=== PATIENT | female | born 1970 | race Caucasian/White ===

== ENCOUNTER → 2020-12-03 15:10 | Outpatient (BNVA) | payer SELFPAY | PROVIDERS: Visit Provider Nurse Practitioner Family | DX: Z20.828 Contact with and (suspected) exposure to other viral communicable diseases (principal); J40 Bronchitis, not specified as acute or chronic | CPT/HCPCS: 87635 ==

== ENCOUNTER 2023-01-08 20:20 | Emergency (ER) | payer SELFPAY ==
[2023-01-08 20:22] VITALS: BP 123/82; PULSE 98; RESP 18; TEMP 36.7; O2SAT 97
--- NOTE | 2023-01-08 21:10 | ED.C_ITS ---
HPI - Psych General: Chief Complaint: Psychiatric Symptoms Stated Complaint: SI/MHE Time Seen by Provider: 01/08/23 21:10 History of Present Illness: 52-year-old female comes in today for complaints of depression. Patient states that she often does not want to get out of bed. Patient denies suicidal homicidal thoughts. 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 Patient reports that she is having a hard time dealing with these losses. Patient has had a history of depression and has been on several medications for depression. Patient had been on Effexor recently but reported no improvement of symptoms. Patient reports nicotine use and marijuana use. Patient denies alcohol, methamphetamines, or narcotic use. Associated symptoms: Reports depression; Deny homicidal ideation or suicidal ideation Review of Systems General: Reports: 10 or more systems reviewed and unremarkable except in HPI a nd below Const: Denies: fever(s) ENMT: Denies: throat pain Card: Denies: chest pain Resp: Denies: dyspnea GI: Denies: nausea or vomiting : Denies: flank pain Musc: Denies: back pain Skin/Breast: Denies: rash Neuro: Denies: headache(s) or numbness in extremities Psych: Reports: depression; Denies: suicidal ideation or homicidal ideation PFS ED PFSH: Social History Smoking and tobacco status: never smoked Alcohol intake: never Physical Exam Const: COMMON NORMALS: alert HENMT: COMMON NORMALS: normocephalic HEAD & SCALP: normocephalic Neck/C-Spine: COMMON NORMALS: full ROM Resp: COMMON NORMALS: normal respiratory effort and clear to auscultation bilaterally AUSCULTATION: clear to auscultation bilaterally Cardio: COMMON NORMALS: regular rate and regular rhythm RATE: regular rate RHYTHM: regular rhythm GI: COMMON NORMALS: Soft to palpation and non-tender PALPATION: Yes Soft to palpation Extremity: COMMON NORMALS: full ROM Neuro: SENSORIUM/ORIENTATION: Yes alert Skin: COMMON NORMALS: turgor normal GENERAL SKIN EXAM: turgor normal Course Vital Signs: Vital signs: Vital Signs Temperature 98.1 F 01/08/23 20:22 Pulse Rate 98 01/08/23 20:22 Respiratory Rate 18 01/08/23 20:22 Blood Pressure 123/82 01/08/23 20:22 Pulse Oximetry 97 01/08/23 20:22 Oxygen Delivery Me thod 01/08/23 20:22 MDM - Psych Medical Decision Making 52-year-old female comes in today for complaints of increased depression. Patient denies any homicidal suicidal thoughts. 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 On exam lungs are clear to auscultation. Vital signs are normal. Respirations are even lungs are clear to auscultation. Differential diagnosis includes but not limited to major depressive disorder, adjustment disorder, bipolar type II. Patient laboratory values were unremarkable. Patient was given 1/2 mg of lorazepam which helped calm her. Patient continued to deny any suicidal or homicidal thoughts. Discussed with patient medication she has been on before. Patient did not feel most of the medication she has been on has been effective and did not wish to start a new medication today. Patient was open to counseling, we will put a request into case management to assist with behavioral health counseling follow-up. Lab Data 01/08/23 21:25 01/08/23 21:25 Laboratory Results WBC 5.4 10^3/uL (4.0-10.0) 01/08/23: RBC 5.23 10^6/uL (4.1-5.3) 01/08/23 21:25 Hgb 15.7 g/dL (11.5-15.3) H 01/08/23 21: Hct 46.7 % (37.0-47.0) 01/08/23: MCV 89.3 fl (81-99) 01/08/23 21: MCH 30.0 pg (28.0-34.0) 01/08/23: MCHC 33.6 g/dL (30.0-36.0) 01/08/23: RDW 13.2 % (12.1-15.1) 01/08/23 21: Plt Count 220 10^3/cmm (130-400) 01/08/23 21: MPV 10.9 fL (7.4-10.4) H 01/08/23 21: Neut % (Auto) 60.8 % 01/08/23 21:25 Lymph % (Auto) 25.8 % 01/08/23 21:25 [place] % (Auto) 11.9 % 01/08/23 21: Eos % (Auto) 0.7 % 01/08/23 21:25 Baso % (Auto) 0.6 % 01/08/23 21:25 Neut # (Auto) 3.28 10^3/uL (1.8-7.7) 01/08/23 21: Lymph # (Auto) 1.4 10^3/uL (0.8-4.8) 01/08/23 21:25 [place] # (Auto) 0.6 10^3/uL (0.2-0.9) 01/08/23 21: Eos # (Auto) 0.0 10^3/uL (0.0-0.8) 01/08/23 21: Baso # (Auto) 0.0 10^3/uL (0.0-0.1) 01/08/23 21: Nucleated RBC % (auto) 0 % 01/08/23 21: Nucleated RBCs # 0.0 /100WBC 01/08/23 21:25 Sodium 141 mmol/L (136-145) 01/08/23 21:25 Potassium 3.2 mmol/L (3.5-5.1) L 01/08/23 21:25 Chloride 99 mmol/L (98-107) 01/08/23 21: Carbon Dioxide 26 mmol/L (22-29) 01/08/23 21:25 Anion Gap 19.2 (5-19) H 01/08/23 21:25 BUN 9 mg/dL (6-20) 01/08/23 21:25 Creatinine 0.9 mg/dL (0.5-0.9) 01/08/23 21:25 GFR Calculation 65.5 mL/min (90-130) L 01/08/23 21:25 Glucose 93 mg/dL (65-115) 01/08/23 21:25 Calculated Osmolality 290 mOsm/kg (285-295) 01/08/23 21:25 Calcium 9.4 mg/dL (8.5-10.5) 01/08/23 21:25 Total Bilirubin 0.7 mg/dL (0.15-1.2) 01/08/23 21:25 AST 24 U/L (0-32) 01/08/23 21:25 ALT 22 U/L (0-33) 01/08/23 21:25 Alkaline Phosphatase 154 U/L (35-105) H 01/08/23 21:25 Total Protein 7.8 g/dL (6.6-8.7) 01/08/23 21:25 Albumin 4.3 g/dL (3.5-5.2) 01/08/23 21:25 Globulin 3.5 g/dL (1.3-4.6) 01/08/23 21:25 TSH 3.39 uIU/mL (0.27-4.20) 01/08/23 21:25 Discharge Plan Discharge Patient Disposition: Home Clinical Impression: MDD (major depressive disorder) Qualifiers: Major depression recurrence: recurrent Active/Remission status: currently ac tive Major depression episode severity: moderate Qualified Code(s): F33.1 - Major depressive disorder, recurrent, moderate Condition: Stable Prescriptions: No Action albuterol sulfate [ProAir HFA] 90 mcg/actuation HFA aerosol inhaler 2 puff inhalation Q6H PRN (Reason: shortness of breath or wheezing) Qty: 8.5 0RF prednisone 20 mg tablet 40 mg PO DAILY 5 Days Qty: 10 0RF azithromycin 250 mg tablet See Rx Instructions PO .COMPLEX Qty: 6 0RF Rx Instructions: take 500 mg today (day 1), then 250 mg for 4 days (days 2-5) PO citalopram [Celexa] 20 mg tablet 20 mg PO DAILY Discharge Orders: Discharge ED (Routine); Ordered 01/08/23 Ordered By: Enoch Schneider Discharge Diet: Usual diet Discharge Activity: Increase activity as tolerated Patient Instructions: Depression (ED) Activity Restrictions/Additional Instructions: Home and rest. Drink plenty of water. Follow-up with primary care in the morning for recheck. Case management will contact you regarding follow-up appointment behavioral health counseling. Return to ER for worsening symptoms such as suicidal thoughts or ideation, or new concerns. Coding Level of Care Code ED B2B Sales Consultant for Jennifer Alvarez
[2023-01-08] MEDS: LORazepam 0.5 mg Tablet PO (21:27)
[2023-01-08 22:11] LABS: Basophils % 0.6 %; Eosinophils % 0.7 %; Hematocrit 46.7 % (37.0-47.0); Hemoglobin 15.7 g/dL (11.5-15.3); Lymphocytes # 1.4 10^3/uL (0.8-4.8); Lymphocytes % 25.8 %; Mean Corpuscular HGB Conc 33.6 g/dL (30.0-36.0); Mean Corpuscular Volume 89.3 fl (81-99); Mean Platelet Volume 10.9 fL (7.4-10.4); Monocytes # 0.6 10^3/uL (0.2-0.9); Monocytes % 11.9 %; Neutrophils # 3.28 10^3/uL (1.8-7.7); Neutrophils % 60.8 %; Nucleated Red Blood Cells % 0 %; Platelet Count 220 10^3/cmm (130-400); Red Blood Count 5.23 10^6/uL (4.1-5.3); Red Cell Distribution Width 13.2 % (12.1-15.1); White Blood Count 5.4 10^3/uL (4.0-10.0)
[2023-01-08 22:13] LABS: Alanine Aminotransferase 22 U/L (0-33); Albumin Level 4.3 g/dL (3.5-5.2); Alkaline Phosphatase 154 U/L (35-105); Anion Gap 19.2 (5-19); Aspartate Amino Transferase 24 U/L (0-32); Blood Urea Nitrogen 9 mg/dL (6-20); Calcium 9.4 mg/dL (8.5-10.5); Carbon Dioxide 26 mmol/L (22-29); Chloride 99 mmol/L (98-107); Globulin 3.5 g/dL (1.3-4.6); Glomerular Filtration Rate 65.5 mL/min (90-130); Glucose 93 mg/dL (65-115); Osmolality Calculated 290 mOsm/kg (285-295); Potassium 3.2 mmol/L (3.5-5.1); Sodium 141 mmol/L (136-145); Total Bilirubin 0.7 mg/dL (0.15-1.2); Total Protein 7.8 g/dL (6.6-8.7)
[2023-01-08 22:14] LABS: Thyroid Stimulating Hormone 3.39 uIU/mL (0.27-4.20)
[2023-01-08 22:25] VITALS: RESP 16; O2SAT 99
--- NOTE | 2023-01-09 08:56 | DCPLANNER ---
Addendum entered by Rashida Coleman 01/15/23 15:17: brokerage manager received the following message from Blanca Smith at [facility] regarding follow up appointment: Unable to be seen due to having a medical marijuana card with mental health diagnosis. She is currently working on getting the diagnosis changed. Addendum entered by Rashida Coleman 01/15/23 09:40: brokerage manager received the following message from Calli at [facility] regarding follow up appointment: Beata came in to our office and was not able to be seen for an assessment. She has a medical marijuana card for anxiety. She is able to speak to [facility] but not able to have any other services outside of that unless she revokes it or the diagnosis is changed Original Note: brokerage manager had message to refer patient to [facility]. brokerage manager sent patients information to the scheduling desk at [facility]. Patients information will be reviewed. Clinic will call patient with information on how to start services at the clinic. brokerage manager sent patients information to Blanca Smith, operating room coordinator at [facility]. Patients information will be reviewed, clinic will call patient an inform her on how to start services.
--- NOTE | 2023-01-09 14:02 | DCPLANNER ---
Addendum entered by Rashida Coleman 01/10/23 13:36: refractory manager called patient due to no primary care physician - no answer at this time Original Note: refractory manager called patient due to no primary care physician - no answer at this time
== END 2023-01-08 22:33 | disposition home or self-care (01) ==
PROVIDERS: Emergency Provider Nurse Practitioner Family
DX: F33.1 Major depressive disorder, recurrent, moderate (principal)
CPT/HCPCS: 36415; 80053; 84443; 85025; 99283

== ENCOUNTER 2023-01-17 13:33 | Emergency (ER) | payer SELFPAY ==
[2023-01-17 13:41] VITALS: BP 134/87; PULSE 81; RESP 17; TEMP 36.5; O2SAT 97; BMI 27.4
--- NOTE | 2023-01-17 13:58 | USCV_ITS ---
Beata Piedra Age: 52 Gender: F : 1970 Exam Date: 01/17/2023 14:13 Ordering Phys: Venancio Bal Technologist: Mark Bah [place] [facility] [place] Indication: lt leg pain and swelling PROCEDURES: Venous duplex imaging was performed in only the left lower extremity. The following venous structures were evaluated: common femoral vein, profunda vein, proximal portion of the greater saphenous vein, superficial femoral vein, and the popliteal vein. In addition, the posterior tibial and peroneal trunk were evaluated. FINDINGS: Normal 2-D Doppler and augmentation and compressibility throughout the lower extremity venous structures. Additional imaging through the proximal calf veins also reveals no thrombus. Limited evaluation of the greater saphenous vein is patent with no thrombus. CONCLUSIONS No evidence of left lower extremity DVT. Poli Zendejas MD (Electronically Signed) Final Date: 17 January 2023 17:36 S
--- NOTE | 2023-01-17 13:59 | W.ED.EXTPRO ---
HPI - Extremity Problem General: Chief complaint: Extremity Problem,Nontraumatic Stated complaint: left leg pain/burning Time Seen by Provider: 01/17/23 13:47 History of Present Illness: Patient is a 52-year-old female comes to the ED with left leg pain. Symptoms started approximately 4 days ago. Pain is located in her calf. She describes it as a burning type pain. While at rest pain is minimal. When she gets up to weight-bear or ambulate pain in left calf gets a lot worse. Patient has not had any injury/trauma to left leg and she denies any recent hospitalizations, surgeries or decreased mobility recently. denies any past DVTs or blood clots. Denies any chest pain, shortness of breath or hemoptysis. Associated symptoms: Deny chest pain, fever(s) or rash Review of Systems Const: Denies: fever(s), chills or fatigue Eyes: Denies: change in vision or eye discomfort ENMT: Denies: throat pain, odynophagia, nasal discharge or nasal congestion Card: Denies: chest pain, palpitations, edema, swelling of feet/ankles, dyspnea on exertion or orthopnea Resp: Denies: dyspnea, productive cough or non-productive cough GI: Denies: abdominal pain, nausea, vomiting, diarrhea, constipation or hematochezia : Denies: flank pain, dysuria or hematuria Musc: Reports: extremity pain (Left calf pain); Denies: neck pain, back pain or extremity swelling Skin/Breast: Denies: rash or new lesions Neuro: Denies: headache(s), numbness in extremities or weakness in extremities PFS ED PFSH: Medical History COPD (chronic obstructive pulmonary disease) No pertinent family history Social History Smoking and tobacco status: never smoked Alcohol intake: never Physical Exam Const: COMMON NORMALS: patient oriented x3 HENMT: COMMON NORMALS: normocephalic HEAD & SCALP: normocephalic MOUTH: Normal oral and palatal mucosa present THROAT: posterior oropharynx normal and uvula midline Neck/C-Spine: COMMON NORMALS: supple GENERAL: Yes normal visual inspection Resp: COMMON NORMALS: normal respiratory effort, No retractions, No use of accessory muscles and clear to auscultation bilaterally AUSCULTATION: clear to auscultation bilaterally Cardio: COMMON NORMALS: regular rate, regular rhythm, S1 normal heart sound present, S2 normal heart sound present, No gallops present (Cardio), No clicks present (Cardio), No murmurs present (Cardio) and Peripheral pulses 2+ throughout RATE: regular rate RHYTHM: regular rhythm HEART SOUNDS: S1 normal heart sound present and S2 normal heart sound present PERIPHERAL PULSES: Peripheral pulses 2+ throughout GI: COMMON NORMALS: Normal to inspection, nondistended, normoactive bowel sounds present, Soft to palpation, non-tender and no masses PALPATION: Yes Soft to palpation : COMMON NORMALS: Yes no CVA tenderness BLADDER/KIDNEY EXAM: Yes no CVA tenderness Back/Pelvis: COMMON NORMALS: no CVA tenderness Extremity: COMMON NORMALS: full ROM and no pedal edema NARRATIVE EXTREMITY EXAM: Left leg?varicose veins seen. Patient's left calf is tender upon palpation. No visible swelling or edema to left leg. GENERAL: Yes calf tenderness (Left) and No edema Neuro: COMMON NORMALS: patient oriented x3 GAIT: Yes Normal gait present Skin: GENERAL SKIN EXAM: dry skin Course Vital Signs: Vital signs: Vital Signs Temperature 97.7 F 01/17/23 13:41 Pulse Rate 81 01/17/23 13:41 Respiratory Rate 17 01/17/23 13:41 Blood Pressure 134/87 01/17/23 13:41 Pulse Oximetry 97 01/17/23 13:41 Oxygen Delivery Me thod 01/17/23 13:41 MDM - Extremity (Nontraumatic) Medical Decision Making Patient is a 52-year-old female comes to the ED with left leg pain. Symptoms started approximately 4 days ago. Pain is located in her calf. She describes it as a burning type pain. While at rest pain is minimal. When she gets up to weight-bear or ambulate pain in left calf gets a lot worse. Patient has not had any injury/trauma to left leg and she denies any recent hospitalizations, surgeries or decreased mobility recently. denies any past DVTs or blood clots. Denies any chest pain, shortness of breath or hemoptysis. Vitals are stable. Patient appears nontoxic in no acute distress or pain. Left leg shows some varicose veins. Left calf is tender upon palpation. No visible swelling or edema to left leg seen. Ultrasound venous duplex of left lower extremity showed no DVT or blood clots seen. Patient diagnosed with pain in the left lower leg which is likely muscular in nature. She stable for discharge home and told to follow-up with her PCP in the next week for reevaluation. Return to ED precautions given. Patient understood and agreed with plan. Imaging Data US Vascular: My impression: Ultrasound venous duplex of left lower extremity?prelim report showed no DVTs or blood clots seen Discharge Plan Discharge Patient Disposition: Home Clinical Impression: Pain in left lower leg Condition: Stable Prescriptions: No Action albuterol sulfate [ProAir HFA] 90 mcg/actuation HFA aerosol inhaler 2 puff inhalation Q6H PRN (Reason: shortness of breath or wheezing) Qty: 8.5 0RF methocarbamol [Robaxin] 500 mg Tablet 500 mg PO DAILY haloperidol 5 mg tablet 2.5 mg PO BID Discharge Orders: Discharge ED (Routine); Ordered 01/17/23 Ordered By: Venancio Bal Discharge Diet: Regular Discharge Activity: Increase activity as tolerated Activity Restrictions/Additional Instructions: Follow-up with medical provider as directed in the next 5 to 7 days for reevaluation. Rest, ice and elevate left leg to help with symptoms. Take [id number] ibuprofen or Tylenol to help with pain. Continue taking all home medications as previously prescribed. Return to the ER or your medical provider if condition worsens. Please read and understand discharge instructions. Thank you for choosing [facility] for your healthcare needs today. Please realize this is an emergency room and that we are providing you with a medical screening exam and this may not be complete and all inclusive of all the testing and or work up that you may need to determine your ailment or severity of your illness. It is very important that you follow up as instructed or that you return to the Emergency Department should you have concerns or if your condition changes or worsens in any way. Coding Level of Care Code ED Dock Manager for Jennifer Alvarez
[2023-01-17 14:35] VITALS: PULSE 80
--- NOTE | 2023-01-23 13:06 | DCPLANNER ---
Addendum entered by Rashida Coleman 01/29/23 15:13: legal project manager called patient due to no primary care physician - no answer at this time Original Note: legal project manager called patient due to no primary care physician - no answer at this time
== END 2023-01-17 14:38 | disposition home or self-care (01) ==
PROVIDERS: Emergency Provider Physician Assistant
DX: M79.662 Pain in left lower leg (principal); J44.9 Chronic obstructive pulmonary disease, unspecified
CPT/HCPCS: 93971; 99284

== ENCOUNTER 2023-01-18 16:24 | Inpatient (IN) | payer MEDICARE, SELFPAY ==
[2023-01-18 17:03] VITALS: BP 151/86; PULSE 91; RESP 19; TEMP 36.9; O2SAT 95; BMI 27.4
--- NOTE | 2023-01-18 17:11 | ED.C_ITS ---
HPI - Psych General: Chief Complaint: Psychiatric Symptoms Stated Complaint: stated on Bi poler high sent by jorge Time Seen by Provider: 01/18/23 17:10 History of Present Illness: Mrs. Piedra is a 52-year-old lady with history of bipolar presenting to the emergency department for manic episode. She reports onset of symptoms yesterday with inability to sleep, constant racing thoughts, inability to stand still. She thought initially this was a previous medication reaction however she presented to crisis stabilization center and was referred to the emergency department after evaluation for admission for suspected antonio. Patient otherwise denies changes in health from chronic baseline. No other specific changes in health, exacerbating, or alleviating factors identified. Onset (ago): day(s) History of same: Yes Relieving factors: none Exacerbating factors: none Associated psychiatric symptoms: racing thoughts and delusions Review of Systems General: Reports: 10 or more systems reviewed and unremarkable except in HPI and below PFSH ED PFSH: Medical History Chronic back pain COPD (chronic obstructive pulmonary disease) No pertinent family history Surgical History History of facial surgery reconstruction; as a child Family History Sister Cancer uterine Father Cancer prostate Other Chronic kidney disease (CKD) Dementia Diabetes Hyperlipidemia Hypertension Lung disease Psychiatric illness Stroke Denies family history of CAD (coronary artery disease) Clotting disorder Anesthesia complication Bleeding disorder Social History Smoking and tobacco status: current every day smoker cigarettes Packs smoked per day: 1 [ Other cigarette details: 1PPD, 35PY] Alcohol intake: former Year of sobriety/quit date alcohol: 2013 Former alcohol use details: heavy use prior Lives independently: Yes Marital status: Legally Number of children: 0 Current occupational status: employed 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 Special [place] needs: No Agree to transfusion: Yes Physical Exam Const: COMMON NORMALS: alert GENERAL APPEARANCE: cooperative and well developed HENMT: COMMON NORMALS: normocephalic and atraumatic HEAD & SCALP: normocephalic and atraumatic THROAT: posterior oropharynx normal Eye: COMMON NORMALS: conjunctivae normal CONJUNCTIVA: Yes conjunctivae normal SCLERA: sclerae normal Neck/C-Spine: COMMON NORMALS: supple GENERAL: Yes trachea midline Resp: COMMON NORMALS: clear to auscultation bilaterally EFFORT & INSPECTION: Yes able to speak in complete sentences AUSCULTATION: clear to auscultation bilaterally Cardio: COMMON NORMALS: regular rate and regular rhythm RATE: regular rate RHYTHM: regular rhythm GI: COMMON NORMALS: Soft to palpation PALPATION: Yes Soft to palpation and No Tenderness to palpation present (GI) Extremity: GENERAL: Yes normal exam except as noted and No edema Neuro: COMMON NORMALS: moves all extremities SENSORIUM/ORIENTATION: Yes alert and No Orientation impaired Psych: ACTIVITY/MOTOR BEHAVIOR: Yes hyperactivity SPEECH: Yes rapid and Yes Pressured speech present Course Vital Signs: Vital signs: Vital Signs Temperature 98.1 F 01/21/23 09:38 Pulse Rate 88 01/21/23 09:38 Respiratory Rate 18 01/21/23 14:00 Blood Pressure 136/86 01/21/23 09:38 Pulse Oximetry 95 01/21/23 09:38 Oxygen Delivery Me thod 01/21/23 06:00 MDM - Psych Medical Decision Making 52-year-old lady with psychiatric history presenting to the emergency department for suspected manic episode. Exam as above. Patient is nontoxic, she is cooperative. No significant hematologic or metabolic abnormalities to explain symptoms. Toxic ingestions are negative, UDS positive for THC. Given physical exam and clinical history provided there is no indication for imaging at this time. Based on ED evaluation at this point there is no obvious condition that would preclude the patient from inpatient management of psychiatric concerns/symptoms. The results of ED evaluation were discussed with the patient including plan for admission due to requirement for level of care not available if discharged to prevent significant worsening/deterioration. Patient agreeable with plan. Discussed with psychiatry service who was agreeable to admit patient. Medical Records I reviewed the patient's medical records. Lab Data I reviewed the patient's lab results. 01/18/23 17:30 01/18/23 17:30 Laboratory Results WBC 9.2 10^3/uL (4.0-10.0) 01/18/23 17:30 RBC 4.69 10^6/uL (4.1-5.3) 01/18/23 17:30 Hgb 14.0 g/dL (11.5-15.3) 01/18/23 17:30 Hct 42.4 % (37.0-47.0) 01/18/23 17: MCV 90.4 fl (81-99) 01/18/23 17:30 MCH 29.9 pg (28.0-34.0) 01/18/23 17: MCHC 33.0 g/dL (30.0-36.0) 01/18/23 17: RDW 13.4 % (12.1-15.1) 01/18/23 17:30 Plt Count 252 10^3/cmm (130-400) 01/18/23 17: MPV 10.1 fL (7.4-10.4) 01/18/23 17:30 Neut % (Auto) 60.9 % 01/18/23 17:30 Lymph % (Auto) 29.5 % 01/18/23 17:30 [place] % (Auto) 7.4 % 01/18/23 17: Eos % (Auto) 1.2 % 01/18/23 17: Baso % (Auto) 0.7 % 01/18/23 17: Neut # (Auto) 5.60 10^3/uL (1.8-7.7) 01/18/23 17: Lymph # (Auto) 2.7 10^3/uL (0.8-4.8) 01/18/23 17:30 [place] # (Auto) 0.7 10^3/uL (0.2-0.9) 01/18/23 17: Eos # (Auto) 0.1 10^3/uL (0.0-0.8) 01/18/23 17:30 Baso # (Auto) 0.1 10^3/uL (0.0-0.1) 01/18/23 17: Nucleated RBC % (auto) 0 % 01/18/23 17: Nucleated RBCs # 0.0 /100WBC 01/18/23 17:30 Sodium 140 mmol/L (136-145) 01/18/23 17:30 Potassium 3.6 mmol/L (3.5-5.1) 01/18/23 17: Chloride 103 mmol/L (98-107) 01/18/23 17:30 Carbon Dioxide 26 mmol/L (22-29) 01/18/23 17:30 Anion Gap 14.6 (5-19) 01/18/23 17:30 BUN 7 mg/dL (6-20) 01/18/23 17:30 Creatinine 0.7 mg/dL (0.5-0.9) 01/18/23 17:30 GFR Calculation 87.5 mL/min (90-130) L 01/18/23 17:30 Glucose 92 mg/dL (65-115) 01/18/23 17:30 Calculated Osmolality 288 mOsm/kg (285-295) 01/18/23 17:30 Calcium 8.8 mg/dL (8.5-10.5) 01/18/23 17:30 Total Bilirubin 0.4 mg/dL (0.15-1.2) 01/18/23 17:30 AST 17 U/L (0-32) 01/18/23 17:30 ALT 14 U/L (0-33) 01/18/23 17:30 Alkaline Phosphatase 142 U/L (35-105) H 01/18/23 17:30 Creatine Kinase 58 U/L (26-192) 01/18/23 17:30 Total Protein 7.3 g/dL (6.6-8.7) 01/18/23 17:30 Albumin 4.0 g/dL (3.5-5.2) 01/18/23 17:30 Globulin 3.3 g/dL (1.3-4.6) 01/18/23 17:30 TSH 2.63 uIU/mL (0.27-4.20) 01/18/23 17:30 HCG, Qual Negative (Negative) 01/18/23 17:19 Salicylates 2.7 mg/dL (3-10) L 01/18/23 17:30 Urine Opiates Screen Negative ng/mL (Negative) 01/18/23 17:19 Acetaminophen < 5.0 ug/mL (10-30) L 01/18/23 17:30 Ur Barbiturates Screen Negative ng/mL (Negative) 01/18/23 17:19 Ur Phencyclidine Scrn Negative ng/mL (Negative) 01/18/23 17:19 Ur Amphetamines Screen Negative ng/mL (Negative) 01/18/23 17:19 U Benzodiazepines Scrn Negative ng/mL (Negative) 01/18/23 17:19 Urine Cocaine Screen Negative ng/mL (Negative) 01/18/23 17:19 U Marijuana (THC) Screen Positive ng/mL (Negative) H 01/18/23 17:19 Ethyl Alcohol < 10 mg/dL (0-10) 01/18/23 17:30 Discharge Plan Discharge Patient Disposition: Admitted As Inpatient Admit Provider: Alen Torres Clinical Impression: Manic episode Condition: Stable Discharge Diet: Regular Discharge Activity: Resume usual activity Coding Level of Care Code ED Certified Personal Finance Counselor for Jennifer Alvarez
[2023-01-18 17:30] LABS: HCG Qualitative Urine. Negative (Negative)
[2023-01-18 17:44] LABS: Amphetamines Screen Urine Negative (Negative); Barbiturates Screen Urine Negative (Negative); Benzodiazepines Screen Urine Negative (Negative); Cocaine Screen Urine Negative (Negative); Opiate Screen Urine Negative (Negative); PCP Screen Urine Negative (Negative); THC Screen Urine Positive (Negative)
[2023-01-18 17:55] LABS: Basophils # 0.1 10^3/uL (0.0-0.1); Basophils % 0.7 %; Eosinophils # 0.1 10^3/uL (0.0-0.8); Eosinophils % 1.2 %; Hematocrit 42.4 % (37.0-47.0); Lymphocytes # 2.7 10^3/uL (0.8-4.8); Lymphocytes % 29.5 %; Mean Corpuscular Hemoglobin 29.9 pg (28.0-34.0); Mean Corpuscular Volume 90.4 fl (81-99); Mean Platelet Volume 10.1 fL (7.4-10.4); Monocytes # 0.7 10^3/uL (0.2-0.9); Monocytes % 7.4 %; Neutrophils % 60.9 %; Nucleated Red Blood Cells % 0 %; Platelet Count 252 10^3/cmm (130-400); Red Blood Count 4.69 10^6/uL (4.1-5.3); Red Cell Distribution Width 13.4 % (12.1-15.1); White Blood Count 9.2 10^3/uL (4.0-10.0)
[2023-01-18 18:22] VITALS: O2SAT 98
[2023-01-18 18:23] LABS: Alanine Aminotransferase 14 U/L (0-33); Alkaline Phosphatase 142 U/L (35-105); Anion Gap 14.6 (5-19); Aspartate Amino Transferase 17 U/L (0-32); Blood Urea Nitrogen 7 mg/dL (6-20); Calcium 8.8 mg/dL (8.5-10.5); Carbon Dioxide 26 mmol/L (22-29); Chloride 103 mmol/L (98-107); Creatine Phosphokinase 58 U/L (26-192); Globulin 3.3 g/dL (1.3-4.6); Glomerular Filtration Rate 87.5 mL/min (90-130); Glucose 92 mg/dL (65-115); Osmolality Calculated 288 mOsm/kg (285-295); Potassium 3.6 mmol/L (3.5-5.1); Salicylate 2.7 mg/dL (3-10); Sodium 140 mmol/L (136-145); Thyroid Stimulating Hormone 2.63 uIU/mL (0.27-4.20); Total Bilirubin 0.4 mg/dL (0.15-1.2); Total Protein 7.3 g/dL (6.6-8.7)
[2023-01-18 18:35] LABS: Acetaminophen < 5.0 ug/mL (10-30); Alcohol Level < 10 mg/dL (0-10)
[2023-01-18 19:37] VITALS: BP 124/95; PULSE 105; RESP 18; O2SAT 96
--- NOTE | 2023-01-18 19:40 | PC.NURSE ---
obtained vital signs
--- NOTE | 2023-01-18 20:00 | PC.NURSE ---
52yr. old female admitted to room #129-1. Arrived to floor via w/c from ED accompanied by ED staff and security. Patient is voluntary. Alert and Ox4. Mood is anxious/agitated. Patient reports being bipolar and is experiencing a manic episode that has lasted for several days this past week. Patient went to crisis stabilization center a few days ago for medication. Patient states she was given haldol and did take it for a few days but she felt like it made her manic symptoms worse so she quit taking it. Patient returned to the center today and was told by staff to come to ED for eval and treatment. Patient denies SI, HI or AVH. Rates anxiety at a 10/10 due to the antonio. Also reports depression at a 1/10. No c/o pain voiced. Patient lives with and does have a good support system which includes family and friends. Reports sleeping very little this past week. States she takes 20mg of THC gummies before bed everyday and does smoke marijuana daily with the amount being approximately 1/2 of a joint. Patient is cooperative. Skin assessment completed with no issues noted and no contraband found. Unit rules and expectations reviewed. Voiced understanding. Orientated to unit and snacks and fluids offered.
[2023-01-18 20:11] VITALS: BP 131/73; PULSE 90; RESP 15; TEMP 36.8; O2SAT 98
--- NOTE | 2023-01-18 21:15 | PC.NURSE ---
Patient is very manic and states she feels agitated and very anxious. States she would like medication to help relieve what she is feeling like. Call placed to Dr. Torres regarding patients behavior. N.O received to give haldol 5mg, Ativan 2mg and benadryl 50mg po to patient. Educated patient on medication before administration. Voiced understanding. Patient took medication. Encouraged patient to go to dayroom and watch TV to distract her from her thoughts. Patient went to dayroom.
[2023-01-18] MEDS: haloperidol 5 mg Tablet PO (21:24)
[2023-01-18] MEDS: diphenhydrAMINE 50 mg Capsule PO (21:24)
[2023-01-18] MEDS: LORazepam 2 mg Tablet PO (21:25)
[2023-01-18] MEDS: hyDROXYzine 25 mg Capsule 50 MG PO (22:25)
--- NOTE | 2023-01-18 22:25 | PC.NURSE ---
Patient asked to speak to staff. States she is still feeling very anxious and somewhat agitated. Voiced that her mind is racing with thoughts and she can not relax. PRN vistaril offered and taken. Education provided and questions answered. Voiced understanding. Suggested patient do an activity or return to room and try to lay down to relax. Patient stated she would attempt to do an activity.
[2023-01-18] MEDS: trazodone 50 mg Tablet PO (23:40)
--- NOTE | 2023-01-18 23:40 | PC.NURSE ---
Patient continues to voice that she can not go to sleep or relax. Reports her thoughts are racing no matter what she tries to do. Discussed relaxation techniques with patient. Patient visibly anxious. Trazodone offered to assist with sleep. Patient educated on medication. Encouraged patient to go to room and lay down for awhile. Patient agreed.
[2023-01-19] MEDS: OLANZapine 5 mg ODT PO (00:05)
--- NOTE | 2023-01-19 00:05 | PC.NURSE ---
Patient continues to pace halls and is frustrated that she can not go to sleep and states she feels very manic and agitated. Spent several minutes with patient discussing options to assist with relaxation. Patient continued to be visibly agitated. Zyprexa po given at this time. Educated patient on medication and she voiced understanding. Patient returned to room to attempt to rest.
--- NOTE | 2023-01-19 01:20 | PC.NURSE ---
Patient came to nurse's station stating her anxiety was a 10+. She reports trying to relax and go to sleep but her mind keeps racing. Ativan po given. Patient returned to room and laid down. Will continue to assess.
[2023-01-19] MEDS: LORazepam 2 mg Tablet PO (01:22)
--- NOTE | 2023-01-19 04:29 | PC.NURSE ---
Patient continues to be restless. Noted to be moving legs almost constantly while in bed. Patient states she is tired but her legs are restless and she can't rest. Encouraged patient to stay in bed and try and relax. Will continue to assess.
[2023-01-19 06:00] VITALS: RESP 18
--- NOTE | 2023-01-19 06:25 | PC.NURSE ---
Patient has slept off and on for the past few hours. Patient continues to be restless in bed. No signs of distress noted. Continues with 15 minute safety checks per staff.
--- NOTE | 2023-01-19 08:09 | PC.NURSE ---
Patient is resting quietly in bed with eyes closed. Scheduled haldol held due to sedation from previous prn's given on last shift. No signs of distress noted. Continues with 15 minute safety checks per staff.
--- NOTE | 2023-01-19 10:08 | PC.NURSE ---
limited shift assessment at this time, pt asleep in bed in room, shift production supervisor reported several PRN medications given for anxiety/insomnia. pt cont to sleep at this time, resp even et unlabored
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
[2023-01-19 14:00] VITALS: BP 113/73; PULSE 84; RESP 16; TEMP 36.6; O2SAT 91
[2023-01-19 19:57] VITALS: BP 104/68; PULSE 88; RESP 16; TEMP 37.1; O2SAT 95
[2023-01-19] MEDS: ARIPiprazole 10 mg Tablet 5 MG PO (22:03)
[2023-01-19] MEDS: haloperidol 5 mg Tablet 2.5 MG PO (22:04)
[2023-01-20 06:00] VITALS: PULSE 86; RESP 16; TEMP 36.7; O2SAT 94
[2023-01-20] MEDS: haloperidol 5 mg Tablet 2.5 MG PO ×2 (08:11→20:27)
[2023-01-20] MEDS: ARIPiprazole 10 mg Tablet PO (08:11)
[2023-01-20] MEDS: nicotine 4 mg lozenge MUCOUS MEM (10:03)
--- NOTE | 2023-01-20 11:14 | W.PM.NPUPNS ---
Subjective NPU Subjective: Patient presented today continuing to have impatience with the speed of the process. She continued to be clear about wanting to be discharged. We had a lengthy conversation about her goals. She reported that she had been on disability at 1 point. But then in 2013 she went back to work ending her disability and work until just recently. We discussed her getting connected with [facility] [place] and figuring out whether she just needed to be stabilized on her medication and return to work versus some possible short-term disability situation. But we identified the need to allow the situation to dictate our plan. She reports that she feels she is responding well to the Abilify. Mental Status Exam MSE Comments: This is a well nourished, well developed white female in hospital scrubs with limited grooming and limited eye contact. No abnormal movements except for psychomotor retardation. Cooperative with exam in mild distress. Speech was decreased rate and volume. Mood described as frustrated, affect is congruent but subdued. Thought process, organized. Thought content: patient denies suicidal or homicidal ideation, reports frequent paranoia but no delusions noted and reports auditory hallucinations but denies visual hallucinations. Attention and concentration are intact and memory appeared mostly reliable but none were formally tested. She is alert and oriented times three. Insight and judgment are limited, Impulse control is impaired. Vitals/I&O/Wt Last Vital Signs Temp 98.1 F 01/20/23 06:00 Pulse 86 01/20/23 06:00 Resp 16 01/20/23 06:00 BP 104/68 01/19/23 19:57 Pulse Ox 94 01/20/23 06:00 O2 Del Method 01/19/23 14:00 Weight last 48 hrs Weight 74.843 kg Weight 74.843 kg Data NPU 01/18/23 17:30 01/18/23 17:30 A&P Assessment and plan (1) Manic episode: (2) Cluster B personality disorder in adult: Plan This is a 52 year old white woman with a history of trauma, symptoms of depression, anxiety and ptsd, and genetic loading for mental health, addiction and lethality issues who presents reporting continuing manic symptoms including auditory hallucinations and paranoia who returns a week after a psychiatric evaluation reporting that she is worse and that the medications i.e. Haldol was not helpful. 1. Continue current medications. Initiated Abilify 5 mg x1 then increased to 10 mg p.o. every morning. 2. Encourage individual, group and milieu therapy 3. Continue q-15 minute check for safety 4. Recommend sober living treatment at the highest level of care to which the patient is willing to commit. Involuntary Hold Information 96 Hour Hold: 96 Hour Involuntary Admission: No Attestations NPU Medical Necessity Statement*: Inpatient hospitalization is medically necessary and the clinically appropriate intervention at this time. We will monitor medications and make changes as indicated. Likely length of stay is 2-4 days. However will discharge patient tomorrow if she continues to feel strongly about discharge. Coding Level of Care Code Acute Code for [facility] Fwd Diagnoses Manic episode F30.9 Cluster B personality disorder in adult F60.9
[2023-01-20 14:00] VITALS: BP 111/69; PULSE 93; RESP 18; TEMP 37; O2SAT 94
[2023-01-20] MEDS: acetaminophen 325 mg Tablet 650 MG PO (20:28)
--- NOTE | 2023-01-20 20:30 | PC.NURSE ---
PRN tylenol for moderate pain given as ordered for pt complaint of back pain.
[2023-01-20 20:39] VITALS: BP 123/63; PULSE 92; RESP 16; TEMP 36.9; O2SAT 93
[2023-01-21 06:00] VITALS: BP 136/86; PULSE 88; RESP 16; TEMP 36.7; O2SAT 95
[2023-01-21] MEDS: haloperidol 5 mg Tablet 2.5 MG PO (07:56)
[2023-01-21] MEDS: ARIPiprazole 10 mg Tablet PO (07:56)
[2023-01-21] MEDS: acetaminophen 325 mg Tablet 650 MG PO (08:31)
[2023-01-21] MEDS: ibuprofen 600 mg Tablet PO (09:05)
[2023-01-21 09:38] VITALS: BP 136/86; PULSE 88; RESP 16; TEMP 36.7; O2SAT 95
[2023-01-21 14:00] VITALS: RESP 18
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
== END 2023-01-21 16:32 | disposition home or self-care (01) | DRG 885 ==
LOC: ER 18:38 → NP 18:59
PROVIDERS: Admitting Provider Psychiatry & Neurology Psychiatry; Emergency Provider Emergency Medicine; Visit Provider Psychiatry & Neurology Psychiatry
DX: F30.9 Manic episode, unspecified (principal); F60.89 Other specific personality disorders; Z91.49 Other personal history of psychological trauma, not elsewhere classified; Z81.8 Family history of other mental and behavioral disorders; Z81.4 Family history of other substance abuse and dependence; Z62.811 Personal history of psychological abuse in childhood
CPT/HCPCS: 36415; 80053; 80306; 80307; 81025; 82550; 84443; 85025; 97150; 97165; 99238; 99285; Q0163

== ENCOUNTER 2023-09-07 03:34 | Emergency (ER) | payer SELFPAY ==
[2023-09-07 03:35] VITALS: BP 130/71; PULSE 78; RESP 22; TEMP 36.9; O2SAT 100
--- NOTE | 2023-09-07 03:39 | ECG_ITS ---
[facility] Test Date: 2023-09-07 Pat Name: Beata Piedra Department: Room: Gender: Female Treasury Specialist: : 1970 Requested By: Adonis Craft Order Number: [id number] Minesh MD: Dana Hernandez M.D. Measurements Intervals [place] Rate: 72 P: 85 [place]: 170 QRS: 83 QRSD: 93 T: 76 QT: 403 QTc: 441 Interpretive Statements SINUS RHYTHM Compared to ECG 12/10/2015 00:10:12 No significant changes Electronically Signed On 09-09-2023 18:45:23 FENCE REPAIRMAN by Dana Hernandez M.D. [id number]
--- NOTE | 2023-09-07 04:28 | XRR_ITS ---
PROCEDURE INFORMATION: Exam: XR Chest Exam date and time: 09/07/2023 4:30 AM Age: 52 years old Clinical indication: Shortness of breath; Patient HX: C/O SOB. History of copd. TECHNIQUE: Imaging protocol: Radiologic exam of the chest. Views: 1 view. COMPARISON: No relevant prior studies available. FINDINGS: Lungs: Minimal left lower lateral lung opacity. Lungs are otherwise clear. Pleural spaces: Unremarkable. No pleural effusion. No pneumothorax. Heart/Mediastinum: Unremarkable. No cardiomegaly. Advanced diffuse vascular calcification noted. Bones/joints: Unremarkable. XR/XR chest 1V portable [id number] IMPRESSION: Small area of left lateral lung base atelectasis, scarring, or airspace disease.
[2023-09-07 04:33] LABS: Basophils # 0.1 10^3/uL (0.0-0.1); Basophils % 0.9 %; Eosinophils # 0.2 10^3/uL (0.0-0.8); Eosinophils % 2.6 %; Hematocrit 40.3 % (36-47); Lymphocytes # 3.6 10^3/uL (0.8-4.8); Lymphocytes % 41.1 %; Mean Corpuscular HGB Conc 33.5 g/dL (30-55); Mean Corpuscular Hemoglobin 30.6 pg (27-33); Mean Corpuscular Volume 91.4 fl (85-98); Mean Platelet Volume 10.9 fL (7.4-10.4); Monocytes # 0.6 10^3/uL (0.2-0.9); Monocytes % 6.4 %; Neutrophils # 4.26 10^3/uL (1.8-7.7); Neutrophils % 48.8 %; Nucleated Red Blood Cells % 0 %; Platelet Count 210 10^3/cmm (157-399); Red Blood Count 4.41 10^6/uL (3.85-5.65); Red Cell Distribution Width 13.4 % (12.1-15.1); White Blood Count 8.75 10^3/uL (3.29-11.43)
[2023-09-07 04:44] LABS: Alanine Aminotransferase 15 U/L (0-33); Albumin Level 4.3 g/dL (3.5-5.2); Alkaline Phosphatase 125 U/L (35-105); Anion Gap 14.1 (5-19); Aspartate Amino Transferase 17 U/L (0-32); Blood Urea Nitrogen 10 mg/dL (6-20); Calcium 9.4 mg/dL (8.5-10.5); Carbon Dioxide 27 mmol/L (22-29); Chloride 100 mmol/L (98-107); Glucose 116 mg/dL (65-115); Osmolality Calculated 286 mOsm/kg (285-295); Potassium 3.1 mmol/L (3.5-5.1); Sodium 138 mmol/L (136-145); Total Bilirubin 0.3 mg/dL (0.15-1.2); Total Protein 7.3 g/dL (6.6-8.7)
[2023-09-07 05:06] LABS: Troponin(5th) Baseline 7 ng/L (0-10)
[2023-09-07 05:12] LABS: Magnesium 2.2 mg/dL (1.7-2.3); NT Pro B Type Natriuretic Pept 154 pg/mL (0-125); Thyroid Stimulating Hormone 5.53 uIU/mL (0.27-4.20)
--- NOTE | 2023-09-07 05:27 | ED_ITS ---
HPI - SOB/Dyspnea General: Chief Complaint: Shortness of Breath/Dyspnea Stated Complaint: RESP. DISTRESS Time Seen by Provider: 09/07/23 03:44 History of Present Illness: HPI Narrative: 52-year-old female presenting with shortness of breath and chest discomfort. She notes its been happening for the last couple of weeks on and off. It was worse this morning, while at work. She is experiencing chest pain, with palpitations, worse with lying flat. She has had a bit of a cough. No fever. No sputum production. Ambulance was called. She received a DuoNeb treatment and Solu-Medrol in route. She is feeling improved. She comes in on a simple mask. Associated symptoms: Reports chest pain, nausea and palpitations; Deny abdominal pain, dizziness, fever(s) or vomiting Review of Systems Const: Denies: fever(s), chills or body aches Eyes: Denies: change in vision Card: Reports: chest pain and palpitations Resp: Reports: dyspnea, productive cough and wheezing GI: Reports: nausea; Denies: abdominal pain, vomiting, diarrhea or hematochezia : Denies: difficulty voiding Skin/Breast: Denies: rash Neuro: Denies: headache(s), weakness in extremities, dizziness or confusion PFSH ED PFSH: Medical History Chronic back pain COPD (chronic obstructive pulmonary disease) No pertinent family history Surgical History History of facial surgery reconstruction; as a child Family History Sister Cancer uterine Father Cancer prostate Other Chronic kidney disease (CKD) Dementia Diabetes Hyperlipidemia Hypertension Lung disease Psychiatric illness Stroke Denies family history of CAD (coronary artery disease) Clotting disorder Anesthesia complication Bleeding disorder Social History Smoking and tobacco/nicotine status: current every day tobacco/nicotine user cigarettes Packs smoked per day: 1 [ Other cigarette details: 1PPD, 35PY] Alcohol intake: former Year of sobriety/quit date alcohol: 2012 Former alcohol use details: heavy use prior Substance/Drug Use: current Substance/Drug use frequency: daily Other substance/drug use details: Medical card Lives independently: Yes Marital status: Legally Number of children: 0 Current occupational status: employed 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 Special cuba needs: No Agree to transfusion: Yes Physical Exam Const: COMMON NORMALS: no acute distress GENERAL APPEARANCE: cooperative; not ill appearing and not frail appearing HENMT: COMMON NORMALS: normocephalic, atraumatic and Normal external nose present HEAD & SCALP: normocephalic and atraumatic FACE & SINUS: normal facial exam and face symmetric NOSE: Normal external nose present Eye: COMMON NORMALS: Equal, round and reactive pupils present and EOMs intact bilaterally PUPIL: Yes Equal, round and reactive pupils present Neck/C-Spine: GENERAL: Yes trachea midline Chest: CHEST: Yes Symmetrical chest wall rise Resp: COMMON NORMALS: normal respiratory effort, No retractions, No use of accessory muscles and clear to auscultation bilaterally AUSCULTATION: clear to auscultation bilaterally Cardio: COMMON NORMALS: regular rate and regular rhythm RATE: regular rate RHYTHM: regular rhythm GI: COMMON NORMALS: Normal to inspection, nondistended, normoactive bowel sounds present Extremity: COMMON NORMALS: no pedal edema Neuro: EFRAIN COMA SCALE: document GCS findings Efrain coma scale eye opening: Spontaneous Efrain coma scale verbal response: Orientated Efrain coma scale motor response: Obey commands [place] coma scale total score: 15 SENSORY EXAM: Yes extremities (intact) Psych: COMMON NORMALS: speech normal SPEECH: Yes normal speech Skin: COMMON NORMALS: no rashes or lesions noted GENERAL SKIN EXAM: no rashes or lesions noted Course Vital Signs: Vital signs: Vital Signs Temperature 98.4 F 09/07/23 03:35 Pulse Rate 83 09/07/23 05:56 Respiratory Rate 22 H 09/07/23 06:13 Blood Pressure 130/71 09/07/23 03:35 Pulse Oximetry 99 09/07/23 06:13 Oxygen Delivery Me thod Room Air 09/07/23 05:51 MDM - SOB/Dyspnea Medical Decision Making Oxygen was turned down on the simple mask to room air. She continues to maintain a saturation of 90% and above. CBC is normal. BMP shows a potassium of 3.1. Other laboratory is not remarkable. Troponin is 7. Chest x-ray is negative. EKG shows a sinus rhythm with a rate of 70 normal axis normal intervals and no ST changes. She will be placed on a steroid taper, albuterol. Outpatient follow-up. To return for worsening symptoms. Lab Data 09/07/23 03:46 09/07/23 03:46 Labs/Radiology: Radiology Impressions Chest X-Ray 09/07/23 04:28 IMPRESSION: Small area of left lateral lung base atelectasis, scarring, or airspace disease. Laboratory Results WBC 8.75 10^3/uL (3.29-11.43) 09/07/23 03:46 RBC 4.41 10^6/uL (3.85-5.65) 09/07/23 03:46 Hgb 13.50 g/dL (11.27-16.99) 09/07/23 03:46 Hct 40.3 % (36-47) 09/07/23 03:46 MCV 91.4 fl (85-98) 09/07/23 03:46 MCH 30.6 pg (27-33) 09/07/23 03:46 MCHC 33.5 g/dL (30-55) 09/07/23 03:46 RDW 13.4 % (12.1-15.1) 09/07/23 03:46 Plt Count 210 10^3/cmm (157-399) 09/07/23 03:46 MPV 10.9 fL (7.4-10.4) H 09/07/23 03:46 Neut % (Auto) 48.8 % 09/07/23 03:46 Lymph % (Auto) 41.1 % 09/07/23 03:46 [place] % (Auto) 6.4 % 09/07/23 03:46 Eos % (Auto) 2.6 % 09/07/23 03:46 Baso % (Auto) 0.9 % 09/07/23 03:46 Neut # (Auto) 4.26 10^3/uL (1.8-7.7) 09/07/23 03:46 Lymph # (Auto) 3.6 10^3/uL (0.8-4.8) 09/07/23 03:46 [place] # (Auto) 0.6 10^3/uL (0.2-0.9) 09/07/23 03:46 Eos # (Auto) 0.2 10^3/uL (0.0-0.8) 09/07/23 03:46 Baso # (Auto) 0.1 10^3/uL (0.0-0.1) 09/07/23 03:46 Nucleated RBC % (auto) 0 % 09/07/23 03:46 Nucleated RBCs # 0.0 /100WBC 09/07/23 03:46 Sodium 138 mmol/L (136-145) 09/07/23 03:46 Potassium 3.1 mmol/L (3.5-5.1) L 09/07/23 03:46 Chloride 100 mmol/L (98-107) 09/07/23 03:46 Carbon Dioxide 27 mmol/L (22-29) 09/07/23 03:46 Anion Gap 14.1 (5-19) 09/07/23 03:46 BUN 10 mg/dL (6-20) 09/07/23 03:46 Creatinine 1.1 mg/dL (0.5-0.9) H 09/07/23 03:46 GFR Calculation 52.0 mL/min (90-130) L 09/07/23 03:46 Glucose 116 mg/dL (65-115) H 09/07/23 03:46 Calculated Osmolality 286 mOsm/kg (285-295) 09/07/23 03:46 Calcium 9.4 mg/dL (8.5-10.5) 09/07/23 03:46 Magnesium 2.2 mg/dL (1.7-2.3) 09/07/23 03:46 Total Bilirubin 0.3 mg/dL (0.15-1.2) 09/07/23 03:46 AST 17 U/L (0-32) 09/07/23 03:46 ALT 15 U/L (0-33) 09/07/23 03:46 Alkaline Phosphatase 125 U/L (35-105) H 09/07/23 03:46 Troponin T Baseline 7 ng/L (0-10) 09/07/23 03:46 NT-Pro-B Natriuret Pep 154 pg/mL (0-125) H 09/07/23 03:46 Total Protein 7.3 g/dL (6.6-8.7) 09/07/23 03:46 Albumin 4.3 g/dL (3.5-5.2) 09/07/23 03:46 Globulin 3.0 g/dL (1.3-4.6) 09/07/23 03:46 TSH 5.53 uIU/mL (0.27-4.20) H 09/07/23 03:46 SARS-CoV-2 Ag (Rapid) negative (Negative) 09/07/23 05:00 All radiology interpretation(s) finalized by discharge Discharge Plan Discharge Patient Disposition: Home Clinical Impression: Acute exacerbation of chronic obstructive airways disease, Palpitations, Hypokalemia Condition: Stable Prescriptions: New Medrol (Maicol) 4 mg tablets,dose pack See Rx Instructions .ROUTE .COMPLEX Qty: 21 0RF Rx Instructions: orally per package directions Continued albuterol sulfate 90 mcg/actuation HFA aerosol inhaler 2 puff inhalation Q6H PRN (Reason: shortness of breath or wheezing) Qty: 8.5 0RF No Action mecobalamin (vitamin B12) 5,000 mcg tablet,chewable 5,000 mcg PO DAILY methocarbamol 500 mg tablet 500 mg PO DAILY Qty: 90 0RF aripiprazole 10 mg Tablet 30 mg PO DAILY 30 Days Qty: 30 1RF Discharge Orders: Discharge ED (Routine); Ordered 09/07/23 Ordered By: Adonis Michaels Referrals: Glenn Treviño MD [Primary Care Provider] - 1-3 days Patient Instructions: Heart Palpitations (ED), Hypokalemia (ED), COPD (Chronic Obstructive Pulmonary Disease) (ED), Opioid Safety, Pain Management Activity Restrictions/Additional Instructions: Return for worsening pain or palpitations, or shortness of breath despite treatment. Return for any new or concerning symptoms. Coding Level of Care Code ED Brush Loader And Handle Attacher for Jennifer Alvarez
[2023-09-07 05:35] LABS: SARS Covid-2 Antigen negative (Negative)
[2023-09-07] MEDS: potassium chloride ER 20 mEq Tablet 40 MEQ PO (05:41)
[2023-09-07 05:51] VITALS: PULSE 82; RESP 16; O2SAT 94
[2023-09-07] MEDS: ipratropium-albuterol 3 mL Neb INHALATION (05:51)
[2023-09-07 05:56] VITALS: PULSE 83
[2023-09-07 06:13] VITALS: RESP 22; O2SAT 99
== END 2023-09-07 06:14 | disposition home or self-care (01) ==
PROVIDERS: Emergency Provider Emergency Medicine; PCP Family Medicine
DX: J44.1 Chronic obstructive pulmonary disease with (acute) exacerbation (principal); R00.2 Palpitations; E87.6 Hypokalemia; Z11.52 Encounter for screening for COVID-19; F17.210 Nicotine dependence, cigarettes, uncomplicated
CPT/HCPCS: 71045; 80053; 83735; 83880; 84443; 84484; 85025; 87426; 93005; 94640; 99285

== ENCOUNTER 2024-07-18 17:57 | Emergency (ER) | payer OTHER, SELFPAY ==
[2024-07-18] VITALS (10 sets, daily range): BP systolic 106–136; BP diastolic 65–82; PULSE 74–98; RESP 14–24; TEMP 36.9; O2SAT 88–99
--- NOTE | 2024-07-18 18:12 | ECG_ITS ---
[facility] Test Date: 2024-07-18 Pat Name: Beata Piedra Department: Room: Gender: Female Special Educator: : 1970 Requested By: Masoud Cherry Order Number: [id number] Minesh MD: Usama Rodriguez M.D. Measurements Intervals [place] Rate: 75 P: 51 SC: 139 QRS: 66 QRSD: 87 T: 54 QT: 394 QTc: 442 Interpretive Statements SINUS RHYTHM ST DEVIATION AND MODERATE T-WAVE ABNORMALITY, CONSIDER ANTERIOR ISCHEMIA [-0.1+ mV T-WAVE IN V3/V4] Compared to ECG 09/07/2023 03:39:37 T-wave abnormality now present Possible ischemia now present Electronically Signed On 07-18-2024 19:54:15 CDT by Usama Rodriguez M.D. [email or web address].Vascular Closuremississippi baptist medical centerNOSTROMO ICTmercy health fairfield hospital.[employer]/store/OM/[id number]
--- NOTE | 2024-07-18 18:13 | XRR_ITS ---
PROCEDURE INFORMATION: Exam: XR Chest Exam date and time: 07/18/2024 6:27 PM Age: 53 years old Clinical indication: Shortness of breath; Patient HX: Cough; SOB; Headache TECHNIQUE: Imaging protocol: Radiologic exam of the chest. Views: 1 view. COMPARISON: CR XR chest 1V portable [id number] 09/07/2023 4:30 AM FINDINGS: Lungs: No pulmonary consolidation. Pleural spaces: No pneumothorax or pleural effusion. Heart/Mediastinum: Small size of the cardiac silhouette. Normal mediastinal contours. Bones/joints: Regional osseous structures are unremarkable. XR/XR chest 1V portable [id number] IMPRESSION: No radiographically apparent acute cardiopulmonary disease.
--- NOTE | 2024-07-18 18:15 | ED_ITS ---
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 States she has had some increased dyspnea along with wheezing she had headaches as well. States she feels like she has the flu. Denies any vomiting or diarrhea. Associated symptoms: Deny abdominal pain, chest pain, fever(s), nausea or vomiting Related Data Home Medications Medication Instructions Recorded Confirmed mecobalamin (vitamin B12) 5,000 5,000 mcg PO DAILY 01/24/23 01/31/23 mcg chewable tablet Previous Rx's Medication Instructions Recorded aripiprazole 10 mg tablet 30 mg (3 x 10 mg) PO DAILY 30 days 01/21/23 #30 tabs methocarbamol 500 mg tablet 500 mg PO DAILY #90 tabs 01/24/23 albuterol sulfate 90 mcg/actuation 2 puff inhalation Q6H PRN 09/07/23 aerosol inhaler shortness of breath or wheezing #8.5 grams methylprednisolone 4 mg tablets in See Rx Instructions PO .COMPLEX 09/07/23 a dose pack (Medrol (Maicol)) #21 ea prednisone 50 mg tablet 50 mg PO DAILY #5 tabs 07/18/24 Allergies Allergy/AdvReac Type Severity Reaction Status Date / Time No Known Allergies Allergy Verified 07/18/24 18:08 Review of Systems 2 Const: Denies: fever(s), chills, body aches or change in appetite ENMT: Denies: throat pain or dental pain Card: Denies: chest pain Resp: Reports: dyspnea and wheezing GI: Denies: abdominal pain, nausea, vomiting or diarrhea Musc: Denies: neck pain or back pain Skin/Breast: Denies: rash Neuro: Reports: headache(s) PFSH ED 2 PFSH: Medical History Chronic back pain No pertinent family history COPD (chronic obstructive pulmonary disease) Surgical History History of facial surgery reconstruction; as a child Family History Sister Cancer uterine Father Cancer prostate Other Chronic kidney disease (CKD) Dementia Diabetes Hyperlipidemia Hypertension Lung disease Psychiatric illness Stroke Denies family history of CAD (coronary artery disease) Clotting disorder Anesthesia complication Bleeding disorder Social History Smoking and tobacco/nicotine status: current every day tobacco/nicotine user cigarettes Packs smoked per day: 1 [ Other cigarette details: 1PPD, 35PY] Alcohol intake: former Year of sobriety/quit date alcohol: 2012 Former alcohol use details: heavy use prior Substance/Drug Use: current Substance/Drug use frequency: daily Other substance/drug use details: Medical card Lives independently: Yes Marital status: Legally Number of children: 0 Current occupational status: employed 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 Special 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[place] needs: No Agree to transfusion: Yes Physical Exam 2 Const: COMMON NORMALS: patient oriented x3 HENMT: COMMON NORMALS: normocephalic and atraumatic HEAD & SCALP: n ormocephalic and atraumatic Neck/C-Spine: COMMON NORMALS: full ROM and supple Chest: COMMONS NORMALS: normal inspection of the chest Resp: COMMON NORMALS: normal respiratory effort, No retractions and No use of accessory muscles EFFORT & INSPECTION: Yes Actively coughing AUSCULTATION: wheezes Cardio: COMMON NORMALS: regular rate, regular rhythm and No murmurs present (Cardio) RATE: regular rate RHYTHM: regular rhythm Extremity: COMMON NORMALS: normal to inspection and full ROM Neuro: COMMON NORMALS: patient oriented x3, moves all extremities and no focal motor deficits Psych: COMMON NORMALS: mental status grossly normal, Normal thought process present and cooperative THOUGHT PROCESS: Normal thought process present Skin: COMMON NORMALS: no rashes or lesions noted and no wounds GENERAL SKIN EXAM: no rashes or lesions noted Course 2 Vital Signs: Vital signs: Vital Signs Temperature 98.4 F 07/18/24 18:03 Pulse Rate 98 07/18/24 20:29 Respiratory Rate 24 H 07/18/24 20:29 Blood Pressure 109/67 07/18/24 20:29 Pulse Oximetry 94 07/18/24 20:29 Oxygen Delivery Me thod Room Air 07/18/24 19:56 MDM - SOB/Dyspnea Medical Decision Making Patient presents here with likely COPD exacerbation she is much improved her breathing feels no signs of pneumonia patient on steroids patient stable for discharge follow-up PCP return if worsening Medical Records I reviewed the patient's medical records. Lab Data I reviewed the patient's lab results. 07/18/24 18:22 07/18/24 18:22 Labs/Radiology: Radiology Impressions Chest X-Ray 07/18/24 18:13 IMPRESSION: No radiographically apparent acute cardiopulmonary disease. Laboratory Results WBC 7.93 10^3/uL (3.29-11.43) 07/18/24 18:22 RBC 5.01 10^6/uL (3.85-5.65) 07/18/24 18:22 Hgb 14.80 g/dL (11.27-16.99) 07/18/24 18:22 Hct 44.5 % (36-47) 07/18/24 18:22 MCV 88.8 fl (85-98) 07/18/24 18:22 MCH 29.5 pg (27-33) 07/18/24 18: MCHC 33.3 g/dL (30-55) 07/18/24 18:22 RDW 14.0 % (12.1-15.1) 07/18/24 18: Plt Count 223 10^3/cmm (157-399) 07/18/24 18:22 MPV 10.6 fL (7.4-10.4) H 07/18/24 18:22 Neut % (Auto) 77.1 % 07/18/24 18:22 Lymph % (Auto) 14.4 % 07/18/24 18:22 [place] % (Auto) 7.1 % 07/18/24 18:22 Eos % (Auto) 0.6 % 07/18/24 18:22 Baso % (Auto) 0.5 % 07/18/24 18: Neut # (Auto) 6.12 10^3/uL (1.8-7.7) 07/18/24 18:22 Lymph # (Auto) 1.1 10^3/uL (0.8-4.8) 07/18/24 18:22 [place] # (Auto) 0.6 10^3/uL (0.2-0.9) 07/18/24 18:22 Eos # (Auto) 0.1 10^3/uL (0.0-0.8) 07/18/24 18:22 Baso # (Auto) 0.0 10^3/uL (0.0-0.1) 07/18/24 18:22 Nucleated RBC % (auto) 0 % 07/18/24 18:22 Nucleated RBCs # 0.0 /100WBC 07/18/24 18:22 Sodium 140 mmol/L (136-145) 07/18/24 18:22 Potassium 3.4 mmol/L (3.5-5.1) L 07/18/24 18:22 Chloride 103 mmol/L (98-107) 07/18/24 18:22 Carbon Dioxide 24 mmol/L (22-29) 07/18/24 18:22 Anion Gap 16.4 (5-19) 07/18/24 18:22 BUN 7 mg/dL (6-20) 07/18/24 18:22 Creatinine 0.8 mg/dL (0.5-0.9) 07/18/24 18:22 GFR Calculation 74.7 mL/min (90-130) L 07/18/24 18:22 Glucose 104 mg/dL (65-115) 07/18/24 18:22 Calculated Osmolality 288 mOsm/kg (285-295) 07/18/24 18:22 Calcium 8.9 mg/dL (8.5-10.5) 07/18/24 18:22 Total Bilirubin 0.7 mg/dL (0.15-1.2) 07/18/24 18:22 AST 20 U/L (0-32) 07/18/24 18:22 ALT 13 U/L (0-33) 07/18/24 18:22 Alkaline Phosphatase 179 U/L (35-105) H 07/18/24 18:22 Total Protein 7.4 g/dL (6.6-8.7) 07/18/24 18:22 Albumin 4.1 g/dL (3.5-5.2) 07/18/24 18:22 Globulin 3.3 g/dL (1.3-4.6) 07/18/24 18:22 Coronavirus (PCR) Negative (Negative) 07/18/24 18:14 Influenza A (PCR) Negative (Negative) 07/18/24 18:14 Influenza Type B (PCR) Negative (Negative) 07/18/24 18:14 RSV (PCR) Negative (Negative) 07/18/24 18:14 All radiology interpretation(s) finalized by discharge EKG Data EKG 1: I personally reviewed and interpreted this EKG as follows: EKG Interpretation Date: 07/18/24 EKG interpretation time: 18:18 Interpretation: nsr hr 75 no stemi qrs 87 qtc 423 Discharge Plan Discharge Patient Disposition: Home Clinical Impression: Acute exacerbation of chronic obstructive airways disease Condition: Stable Prescriptions: New prednisone 50 mg tablet 50 mg PO DAILY Qty: 5 0RF No Action mecobalamin (vitamin B12) 5,000 mcg tablet,chewable 5,000 mcg PO DAILY methocarbamol 500 mg tablet 500 mg PO DAILY Qty: 90 0RF aripiprazole 10 mg Tablet 30 mg PO DAILY 30 Days Qty: 30 1RF Medrol (Maicol) 4 mg tablets,dose pack See Rx Instructions .ROUTE .COMPLEX Qty: 21 0RF Rx Instructions: orally per package directions albuterol sulfate 90 mcg/actuation HFA aerosol inhaler 2 puff inhalation Q6H PRN (Reason: shortness of breath or wheezing) Qty: 8.5 0RF Discharge Orders: Discharge ED (Routine); Ordered 07/18/24 Ordered By: Masoud Cherry Referrals: Marni Lee DO [Primary Care Provider] - 4-7 days Discharge Diet: Advance as tolerated Discharge Activity: Resume usual activity Patient Instructions: COPD (Chronic Obstructive Pulmonary Disease) (ED) Coding Level of Care Code ED Cad Operator for Jennifer Alvarez
[2024-07-18 18:28] LABS: Basophils % 0.5 %; Eosinophils # 0.1 10^3/uL (0.0-0.8); Eosinophils % 0.6 %; Hematocrit 44.5 % (36-47); Lymphocytes # 1.1 10^3/uL (0.8-4.8); Lymphocytes % 14.4 %; Mean Corpuscular HGB Conc 33.3 g/dL (30-55); Mean Corpuscular Hemoglobin 29.5 pg (27-33); Mean Corpuscular Volume 88.8 fl (85-98); Mean Platelet Volume 10.6 fL (7.4-10.4); Monocytes # 0.6 10^3/uL (0.2-0.9); Monocytes % 7.1 %; Neutrophils # 6.12 10^3/uL (1.8-7.7); Neutrophils % 77.1 %; Nucleated Red Blood Cells % 0 %; Platelet Count 223 10^3/cmm (157-399); Red Blood Count 5.01 10^6/uL (3.85-5.65); White Blood Count 7.93 10^3/uL (3.29-11.43)
[2024-07-18] MEDS: methylPREDNISolone sod succ 125 mg/2 mL INJ IV (18:31)
[2024-07-18] MEDS: ketorolac 30 mg/mL INJ 15 MG IVP (18:31)
[2024-07-18] MEDS: albuterol 2.5 mg/3 mL Neb INHALATION ×2 (18:38→19:55)
[2024-07-18] MEDS: ipratropium-albuterol 3 mL Neb INHALATION (18:38)
[2024-07-18 18:52] LABS: Alanine Aminotransferase 13 U/L (0-33); Albumin Level 4.1 g/dL (3.5-5.2); Alkaline Phosphatase 179 U/L (35-105); Aspartate Amino Transferase 20 U/L (0-32); Blood Urea Nitrogen 7 mg/dL (6-20); Calcium 8.9 mg/dL (8.5-10.5); Carbon Dioxide 24 mmol/L (22-29); Chloride 103 mmol/L (98-107); Creatinine Clr Calc Pharmacy 88.3043; Globulin 3.3 g/dL (1.3-4.6); Glomerular Filtration Rate 74.7 mL/min (90-130); Glucose 104 mg/dL (65-115); Osmolality Calculated 288 mOsm/kg (285-295); Sodium 140 mmol/L (136-145); Total Bilirubin 0.7 mg/dL (0.15-1.2); Total Protein 7.4 g/dL (6.6-8.7)
[2024-07-18 19:00] LABS: Covid PCR NEGATIVE (Negative); Influenza A NEGATIVE (Negative); Influenza B NEGATIVE (Negative); Respiratory Syncytial Virus Ce NEGATIVE (Negative)
[2024-07-18 19:01] LABS: Anion Gap 16.4 (5-19); Potassium 3.4 mmol/L (3.5-5.1)
== END 2024-07-18 20:15 | disposition home or self-care (01) ==
PROVIDERS: Emergency Provider Emergency Medicine; PCP Family Medicine
DX: J44.1 Chronic obstructive pulmonary disease with (acute) exacerbation (principal); F17.210 Nicotine dependence, cigarettes, uncomplicated
CPT/HCPCS: 0241U; 71045; 80053; 85025; 93005; 94640; 96374; 96375; 99285; J1885; J2919; J7613

== ENCOUNTER 2024-07-20 09:32 | Emergency (ER) | payer OTHER, SELFPAY ==
[2024-07-20] VITALS (10 sets, daily range): BP systolic 119–148; BP diastolic 62–85; PULSE 58–79; RESP 10–22; TEMP 36.6; O2SAT 89–99
--- NOTE | 2024-07-20 09:35 | ED_ITS ---
HPI - SOB/Dyspnea 2 General: Chief Complaint: Shortness of Breath/Dyspnea Stated Complaint: SOB Time Seen by Provider: 07/20/24 09:33 Source: patient Mode of arrival: EMS Limitations: no limitations History of Present Illness: HPI Narrative: Patient is a 53-year-old female presents to ED today with a complaint of dyspnea. She states she has a history of COPD. She is a chronic everyday smoker. Patient was seen here in our emergency department approximately 2 days ago for similar symptoms. She states she was placed on prednisone at discharge but does not feel like this medication has helped. Patient arrives via EMS. She was reportedly given a DuoNeb treatment and route and feels somewhat better. She appears anxious upon arrival and tearful stating she feels like she cannot get enough air. She is satting 90 to 99% on room air. MD elicited complaint: shortness of breath Pertinent past history: COPD Onset (ago): day(s) Timing: constant Severity: moderate Exacerbating factors: nothing Relieving factors: nothing Known history of: COPD Associated symptoms: Reports chest congestion; Deny abdominal pain, chest pain, dizziness, extremity pain, fever(s), hemoptysis, lightheadedness, nausea, palpitations, syncope or vomiting Treatment prior to arrival: bronchodilator Related Data Home Medications Medication Instructions Recorded Confirmed atorvastatin 10 mg tablet 10 mg PO DAILY 07/20/24 07/20/24 buspirone 15 mg tablet 15 mg PO DAILY 07/20/24 07/20/24 escitalopram oxalate 10 mg tablet 10 mg PO DAILY 07/20/24 07/20/24 pregabalin 100 mg capsule 100 mg PO TID 07/20/24 07/20/24 Previous Rx's Medication Instructions Recorded albuterol sulfate 90 mcg/actuation 2 puff inhalation Q6H PRN 09/07/23 aerosol inhaler shortness of breath or wheezing #8.5 grams prednisone 50 mg tablet 50 mg PO DAILY #5 tabs 07/18/24 albuterol sulfate 2.5 mg/0.5 mL 2.5 mg (0.5 mL) inhalation Q4H PRN 07/20/24 solution for nebulization shortness of breath or wheezing #30 ea levofloxacin 500 mg tablet 500 mg PO DAILY 7 days #7 tabs 07/20/24 Allergies Allergy/AdvReac Type Severity Reaction Status Date / Time No Known Allergies Allergy Verified 07/18/24 18:08 Review of Systems 2 Const: Denies: fever(s), chills, body aches, fatigue or malaise ENMT: Denies: throat pain, odynophagia, nasal discharge, nasal congestion or sinus pain Card: Reports: dyspnea on exertion; Denies: chest pain, palpitations, irregular heart rhythm, edema, swelling of feet/ankles, lightheadedness, syncope, pre-syncope, leg pain with exertion or acrocyanosis Resp: Reports: dyspnea, productive cough and chest congestion; Denies: wheezing or hemoptysis GI: Denies: abdominal pain, nausea, vomiting or diarrhea : Denies: flank pain, difficulty voiding, dysuria, urinary frequency, urinary urgency or urinary hesitancy Musc: Denies: neck pain, back pain, extremity pain, extremity swelling or joint pain Skin/Breast: Denies: rash Neuro: Denies: headache(s), numbness in extremities, weakness in extremities, sensory changes or dizziness PFSH ED 2 PFSH: Medical History Chronic back pain No pertinent family history COPD (chronic obstructive pulmonary disease) Surgical History History of facial surgery reconstruction; as a child Family History Sister Cancer uterine Father Cancer prostate Other Chronic kidney disease (CKD) Dementia Diabetes Hyperlipidemia Hypertension Lung disease Psychiatric illness Stroke Denies family history of CAD (coronary artery disease) Clotting disorder Anesthesia complication Bleeding disorder Social History Smoking and tobacco/nicotine status: current every day tobacco/nicotine user cigarettes Packs smoked per day: 1 [ Other cigarette details: 1PPD, 35PY] Alcohol intake: former Year of sobriety/quit date alcohol: 2013 Former alcohol use details: heavy use prior Substance/Drug Use: current Substance/Drug use frequency: daily Other substance/drug use details: Medical card Lives independently: Yes Marital status: Legally Number of children: 0 Current occupational status: employed 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[place] needs: No Agree to transfusion: Yes Physical Exam 2 Const: COMMON NORMALS: average body habitus, patient oriented x3, no limitations, alert and well nourished GENERAL APPEARANCE: cooperative, anxious and other (tearful) ORIENTATION/CONSCIOUSNESS: Yes awake, Yes oriented to person, Yes oriented to place and Yes oriented to time Eye: GENERAL EYE: appearance normal, both eyes and all related structures Neck/C-Spine: COMMON NORMALS: full ROM and no lymphadenopathy GENERAL: Yes normal visual inspection Chest: COMMONS NORMALS: normal inspection of the chest and normal palpation of entire chest wall Resp: COMMON NORMALS: normal respiratory effort EFFORT & INSPECTION: Yes labored, No grunting, No stridor, No retractions and No uses accessory muscles AUSCULTATION: no wheezes and other (course breath sounds L>R) Cardio: COMMON NORMALS: regular rate and regular rhythm RATE: regular rate RHYTHM: regular rhythm GI: COMMON NORMALS: Normal to inspection, nondistended, normoactive bowel sounds present, Soft to palpation and non-tender PALPATION: Yes Soft to palpation : COMMON NORMALS: Yes no CVA tenderness BLADDER/KIDNEY EXAM: Yes no CVA tenderness Back/Pelvis: COMMON NORMALS: no CVA tenderness and thoracic and lumbar spine normal to inspection Extremity: COMMON NORMALS: normal to inspection, capillary refill normal, no clubbing, cyanosis or edema, no calf tenderness and no pedal edema GENERAL: Y es normal exam except as noted Neuro: COMMON NORMALS: patient oriented x3, moves all extremities, no focal motor deficits and no sensory deficits noted SENSORIUM/ORIENTATION: Yes alert, Yes oriented to person, Yes oriented to place and Yes oriented to time Skin: COMMON NORMALS: no rashes or lesions noted GENERAL SKIN EXAM: no rashes or lesions noted Course 2 Vital Signs: Vital signs: Vital Signs Temperature 97.8 F 07/20/24 09:35 Pulse Rate 74 07/20/24 09:53 Respiratory Rate 18 07/20/24 09:53 Blood Pressure 128/83 07/20/24 09:35 Pulse Oximetry 97 07/20/24 09:53 Oxygen Delivery Me thod Room Air 07/20/24 09:53 MDM - SOB/Dyspnea Medical Decision Making Patient is a 53-year-old female here with complaints of shortness of breath and feeling like she cannot get enough air. Patient has maintained normal oxygen saturations without oxygen during her stay. She was very anxious and benefited from a small amount of IV Ativan. Her vital signs are stable. She clinically does not appear fluid overloaded. Her CXR showing no acute findings. Blood work overall is fairly unremarkable. Baseline troponin of 41. No recent for comparison. She does have a negative delta. She has not had any chest pain during her stay. BNP slightly elevated at 667. She has no history of CHF. Clinically she has a COPD exacerbation. She does have follow-up with her primary care provider on Saturday. Will have case management set her up with a pulmonology appointment to optimize her COPD regimen. Respiratory panel has been collected and pending. She feels so much better after IV steroids and stacked DuoNeb treatments here and now resting comfortably. She is requesting a nebulizer for home use which be provided. Will place her on abx. She has several days of steroids left from her last visit. Differential Diagnosis Likely acute exacerbation of chronic obstructive airways disease, congestive heart failure, community acquired pneumonia and pulmonary embolism Medical Records I reviewed the patient's medical records. Lab Data I reviewed the patient's lab results. 07/20/24 09:53 07/20/24 09:53 Labs/Radiology: Radiology Impressions Chest X-Ray 07/20/24 09:40 IMPRESSION: No acute findings. Laboratory Results WBC 12.79 10^3/uL (3.29-11.43) H 07/20/24 09:53 RBC 5.13 10^6/uL (3.85-5.65) 07/20/24 09:53 Hgb 15.20 g/dL (11.27-16.99) 07/20/24 09:53 Hct 45.6 % (36-47) 07/20/24 09:53 MCV 88.9 fl (85-98) 07/20/24 09:53 MCH 29.6 pg (27-33) 07/20/24 09:53 MCHC 33.3 g/dL (30-55) 07/20/24 09:53 RDW 14.3 % (12.1-15.1) 07/20/24 09:53 Plt Count 271 10^3/cmm (157-399) 07/20/24 09:53 MPV 11.1 fL (7.4-10.4) H 07/20/24 09:53 Neut % (Auto) 69.2 % 07/20/24 09:53 Lymph % (Auto) 23.6 % 07/20/24 09:53 [place] % (Auto) 6.7 % 07/20/24 09:53 Eos % (Auto) 0.0 % 07/20/24 09:53 Baso % (Auto) 0.2 % 07/20/24 09:53 Neut # (Auto) 8.85 10^3/uL (1.8-7.7) H 07/20/24 09:53 Lymph # (Auto) 3.0 10^3/uL (0.8-4.8) 07/20/24 09:53 [place] # (Auto) 0.9 10^3/uL (0.2-0.9) 07/20/24 09:53 Eos # (Auto) 0.0 10^3/uL (0.0-0.8) 07/20/24 09:53 Baso # (Auto) 0.0 10^3/uL (0.0-0.1) 07/20/24 09:53 Nucleated RBC % (auto) 0 % 07/20/24 09:53 Nucleated RBCs # 0.0 /100WBC 07/20/24 09:53 Sodium 142 mmol/L (136-145) 07/20/24 09:53 Potassium 3.6 mmol/L (3.5-5.1) 07/20/24 09:53 Chloride 102 mmol/L (98-107) 07/20/24 09:53 Carbon Dioxide 25 mmol/L (22-29) 07/20/24 09:53 Anion Gap 18.6 (5-19) 07/20/24 09:53 BUN 21 mg/dL (6-20) H 07/20/24 09:53 Creatinine 0.9 mg/dL (0.5-0.9) 07/20/24 09:53 GFR Calculation 65.2 mL/min (90-130) L 07/20/24 09:53 Glucose 84 mg/dL (65-115) 07/20/24 09:53 Calculated Osmolality 296 mOsm/kg (285-295) H 07/20/24 09:53 Calcium 9.3 mg/dL (8.5-10.5) 07/20/24 09:53 Total Bilirubin 0.7 mg/dL (0.15-1.2) 07/20/24 09:53 AST 73 U/L (0-32) H 07/20/24 09:53 ALT 25 U/L (0-33) 07/20/24 09:53 Alkaline Phosphatase 163 U/L (35-105) H 07/20/24 09:53 Troponin T Baseline 41 ng/L (0-10) H 07/20/24 09:53 Troponin T 120 Minute 32.72 ng/L (0-10) H 07/20/24 12:04 Delta Troponin T -8.28 ABS# (0-10) L 07/20/24 12:04 NT-Pro-B Natriuret Pep 667 pg/mL (0-125) H 07/20/24 09:53 Total Protein 7.1 g/dL (6.6-8.7) 07/20/24 09:53 Albumin 4.3 g/dL (3.5-5.2) 07/20/24 09:53 Globulin 2.8 g/dL (1.3-4.6) 07/20/24 09:53 All radiology interpretation(s) finalized by discharge Discharge Plan Discharge Patient Disposition: Home Clinical Impression: Acute exacerbation of chronic obstructive airways disease Condition: Stable Prescriptions: New albuterol sulfate 2.5 mg/0.5 mL solution for nebulization 2.5 mg inhalation Q4H PRN (Reason: shortness of breath or wheezing) Qty: 30 0RF levofloxacin 500 mg tablet 500 mg PO DAILY 7 Days Qty: 7 0RF No Action albuterol sulfate 90 mcg/actuation HFA aerosol inhaler 2 puff inhalation Q6H PRN (Reason: shortness of breath or wheezing) Qty: 8.5 0RF prednisone 50 mg tablet 50 mg PO DAILY Qty: 5 0RF atorvastatin 10 mg tablet 10 mg PO DAILY buspirone 15 mg tablet 15 mg PO DAILY escitalopram oxalate 10 mg tablet 10 mg PO DAILY pregabalin 100 mg capsule 100 mg PO TID Discharge Orders: Discharge ED (Routine); Ordered 07/20/24 Ordered By: Oksana Crawford Other Ambulatory Orders: DME: Nebulizer with Neb Kit (Order) Location: None Selected Ordered By: Oksana Crawford Referrals: Marni Lee DO [Primary Care Provider] - Patient Instructions: COPD (Chronic Obstructive Pulmonary Disease) (DC), Chronic Bronchitis (DC) Activity Restrictions/Additional Instructions: As we discussed, please follow-up with your primary care provider on Saturday as scheduled. You need to return to the emergency department for worsening shortness of breath or difficulty breathing, chest pain, lightheadedness/dizziness/passing out, significant weight gain, coughing up blood, generally feeling worse or unwell, or any other concerns you may have. Coding Level of Care Code ED Market Research Manager for Jennifer Alvarez
--- NOTE | 2024-07-20 09:38 | ECG_ITS ---
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 Measurements Intervals [place] Rate: 69 P: 30 [place]: 126 QRS: 67 QRSD: 88 T: 48 QT: 431 QTc: 464 Interpretive Statements SINUS RHYTHM Compared to ECG 07/18/2024 18:18:53 T-wave abnormality no longer present Possible ischemia no longer present Electronically Signed On 07-20-2024 23:27:07 CDT by Usama Rodriguez M.D. [id number]
--- NOTE | 2024-07-20 09:40 | XRR_ITS ---
PROCEDURE INFORMATION: Exam: XR Chest Exam date and time: 07/20/2024 9:50 AM Age: 53 years old Clinical indication: Shortness of breath; Additional info: SOB TECHNIQUE: Imaging protocol: Radiologic exam of the chest. Views: 1 view. COMPARISON: CR (CHEST, ) 07/18/2024 6:27 PM FINDINGS: Lungs: Unremarkable. No consolidation. Pleural spaces: Unremarkable. No pleural effusion. No pneumothorax. Heart/Mediastinum: Borderline cardiomegaly accentuated by the AP positioning. Bones/joints: Unremarkable. XR/XR chest 1V portable [id number] IMPRESSION: No acute findings.
--- NOTE | 2024-07-20 09:46 | PC.NURSE ---
THIS NURSE WAS ATTEMPTING TO OBTAIN ORAL TEMPERATURE ON PT. PT STATED QUIT STABBING ME WITH THAT. THIS NURSE EDUCATED PT ON THE NEED TO OBTAIN AN ORAL TEMPERATURE FOR ACCURATE RESULTS. PT OPENED MOUTH AGAIN AND THEN STATED TO THIS NURSE, STOP THAT. I'M DONE. THIS NURSE EDUCATED PT YET AGAIN ABOUT THE NEED TO GET A TEMPERATURE AND THE ORAL TEMPERATURE BEING THE MOST ACCURATE. PT BEGAN TO RAISE VOICE AT THIS NURSE AND STATED WELL GET SOMEONE ELSE. I CAN'T BREATHE. I HAVE RIGHTS AND I FEEL LIKE MY RIGHTS ARE BEING VIOLATED. THIS NURSE APOLOGIZED AND EDUCATED PT THAT SHE WAS NOT TRYING TO HURT HER, BUT TRYING TO PROVIDE THE BEST CARE POSSIBLE. PT STATED GET ME SOMEONE ELSE. I AM SCARED OUT OF MY MIND AND YOU ARE NOT HELPING ME. AXIALLARY TEMPERATURE OBTAINED. WHILE THIS NURSE WAS COMPLETING TRIAGE, PT WAS ASKED ABOUT PHARMACY. PT RAISED VOICE AGAIN AT THIS NURSE AND STATED JEMAL. LAST TIME I WAS HERE YOU GUYS SENT IT TO [facility]. GET IT RIGHT THIS TIME. THIS NURSE APOLOGIZED TO PT AND TOLD HER THAT WE WOULD SEND IT WHERE SHE WANTED.
[2024-07-20] MEDS: methylPREDNISolone sod succ 125 mg/2 mL INJ IVP (09:54)
[2024-07-20] MEDS: ipratropium-albuterol 3 mL Neb INHALATION ×3 (09:57)
[2024-07-20 10:02] LABS: Basophils % 0.2 %; Hematocrit 45.6 % (36-47); Lymphocytes % 23.6 %; Mean Corpuscular HGB Conc 33.3 g/dL (30-55); Mean Corpuscular Hemoglobin 29.6 pg (27-33); Mean Corpuscular Volume 88.9 fl (85-98); Mean Platelet Volume 11.1 fL (7.4-10.4); Monocytes # 0.9 10^3/uL (0.2-0.9); Monocytes % 6.7 %; Neutrophils # 8.85 10^3/uL (1.8-7.7); Neutrophils % 69.2 %; Nucleated Red Blood Cells % 0 %; Platelet Count 271 10^3/cmm (157-399); Red Blood Count 5.13 10^6/uL (3.85-5.65); Red Cell Distribution Width 14.3 % (12.1-15.1); White Blood Count 12.79 10^3/uL (3.29-11.43)
[2024-07-20 10:23] LABS: Troponin(5th) Baseline 41 ng/L (0-10)
[2024-07-20 10:32] LABS: Alanine Aminotransferase 25 U/L (0-33); Albumin Level 4.3 g/dL (3.5-5.2); Alkaline Phosphatase 163 U/L (35-105); Anion Gap 18.6 (5-19); Aspartate Amino Transferase 73 U/L (0-32); Blood Urea Nitrogen 21 mg/dL (6-20); Calcium 9.3 mg/dL (8.5-10.5); Carbon Dioxide 25 mmol/L (22-29); Chloride 102 mmol/L (98-107); Globulin 2.8 g/dL (1.3-4.6); Glomerular Filtration Rate 65.2 mL/min (90-130); Glucose 84 mg/dL (65-115); NT Pro B Type Natriuretic Pept 667 pg/mL (0-125); Osmolality Calculated 296 mOsm/kg (285-295); Potassium 3.6 mmol/L (3.5-5.1); Sodium 142 mmol/L (136-145); Total Bilirubin 0.7 mg/dL (0.15-1.2); Total Protein 7.1 g/dL (6.6-8.7)
--- NOTE | 2024-07-20 11:36 | ECG_ITS ---
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 Measurements Intervals [place] Rate: 67 P: 58 NM: 146 QRS: 72 QRSD: 94 T: 54 QT: 410 QTc: 433 Interpretive Statements SINUS RHYTHM WITH SINUS ARRHYTHMIA MODERATE T-WAVE ABNORMALITY, CONSIDER ANTERIOR ISCHEMIA [-0.1+ mV T-WAVE IN V3/V4] Compared to ECG 07/20/2024 09:38:42 T-wave abnormality now present Possible ischemia now present Electronically Signed On 07-20-2024 23:36:45 CDT by Usama Rodriguez M.D. [id number]
[2024-07-20] MEDS: LORazepam 2 mg/mL INJ 1 mL 0.5 MG IVP (12:04)
[2024-07-20 12:33] LABS: Troponin 5 2HR 32.72 ng/L (0-10)
[2024-07-20 12:37] LABS: Troponin 5 2HR Delta -8.28 ABS# (0-10)
--- NOTE | 2024-07-20 12:54 | ECG_ITS ---
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 Measurements Intervals [place] Rate: 61 P: 65 [place]: 139 QRS: 67 QRSD: 91 T: 48 QT: 433 QTc: 436 Interpretive Statements SINUS RHYTHM NONSPECIFIC T-WAVE ABNORMALITY Compared to ECG 07/20/2024 11:36:33 Sinus arrhythmia no longer present Possible ischemia no longer present T-wave abnormality still present Electronically Signed On 07-20-2024 23:35:22 CDT by Usama Rodriguez M.D. [id number]
[2024-07-20 13:44] LABS: Adenovirus Not Detected (NOT DETECT); Chlamydia Pneumoniae Not Detected (NOT DETECT); Coronavirus 229E,HKU1,NL63,OC4 Not Detected (NOT DETECT); Human Metapneumovirus Not Detected (NOT DETECT); Human Rhinovirus/Enterovirus Detected (NOT DETECT); Influenza A Not Detected (NOT DETECT); Influenza A H1 Not Detected (NOT DETECT); Influenza A H1-2009 Not Detected (NOT DETECT); Influenza A H3 Not Detected (NOT DETECT); Influenza B Not Detected (NOT DETECT); Mycoplasma Pneumoniae Not Detected (NOT DETECT); Parainfluenza Virus Type 1 Not Detected (NOT DETECT); Parainfluenza Virus Type 2 Not Detected (NOT DETECT); Parainfluenza Virus Type 3 Not Detected (NOT DETECT); Parainfluenza Virus Type 4 Not Detected (NOT DETECT); Respiratory Syncytial Virus A Not Detected (NOT DETECT); Respiratory Syncytial Virus B Not Detected (NOT DETECT); SARS-COV-2 Not Detected (NOT DETECT)
--- NOTE | 2024-07-21 07:56 | DCPLANNER ---
faxed referral packet to pulmonology/Esthela
== END 2024-07-20 13:35 | disposition home or self-care (01) ==
PROVIDERS: Emergency Provider Physician Assistant; PCP Family Medicine
DX: J44.1 Chronic obstructive pulmonary disease with (acute) exacerbation (principal); F17.210 Nicotine dependence, cigarettes, uncomplicated
CPT/HCPCS: 71045; 80053; 83880; 84484; 85025; 87486; 87581; 87633; 93005; 94640; 96374; 96375; 99285; J2060; J2919

== ENCOUNTER 2024-08-21 10:18 | Emergency (ER) | payer OTHER, SELFPAY ==
[2024-08-21 10:21] VITALS: BMI 29.6
[2024-08-21 10:28] VITALS: BP 147/81; PULSE 70; RESP 20; TEMP 36.7; O2SAT 99
--- NOTE | 2024-08-21 10:30 | W.ED.ANXIETY ---
HPI - Anxiety General: Chief Complaint: Anxiety Stated Complaint: ANXIETY Time Seen by Provider: 08/21/24 10:22 Source: patient and EMS Mode of arrival: EMS Limitations: no limitations History of Present Illness: 53-year-old female history of anxiety states that she has not taken her meds last 2 days because she has been having nausea and states she had a GI bug states that the vomiting is improved but she had an anxiety attack today EMS states that she was tachypneic hyperventilating they did give her Versed she feels improved she denies any chest pain. Associated symptoms: Reports nausea and vomiting; Deny chest pain, chills, fever(s) or headache(s) Related Data Home Medications Medication Instructions Recorded Confirmed atorvastatin 10 mg tablet 10 mg PO DAILY 07/20/24 08/21/24 buspirone 15 mg tablet 15 mg PO DAILY 07/20/24 08/21/24 pregabalin 100 mg capsule 100 mg PO TID 07/20/24 08/21/24 escitalopram oxalate 20 mg tablet 20 mg PO DAILY 08/21/24 08/21/24 Previous Rx's Medication Instructions Recorded albuterol sulfate 90 mcg/actuation 2 puff inhalation Q6H PRN 09/07/23 aerosol inhaler shortness of breath or wheezing #8.5 grams albuterol sulfate 2.5 mg/0.5 mL 2.5 mg (0.5 mL) inhalation Q4H PRN 07/20/24 solution for nebulization shortness of breath or wheezing #30 ea ondansetron 4 mg disintegrating 4 mg PO Q6H PRN nausea and 08/21/24 tablet vomiting #14 tabs Allergies Allergy/AdvReac Type Severity Reaction Status Date / Time No Known Allergies Allergy Verified 07/18/24 18:08 Review of Systems Const: Denies: fever(s), chills, body aches or change in appetite ENMT: Denies: throat pain or dental pain Card: Denies: chest pain Resp: Denies: dyspnea GI: Reports: nausea, vomiting and diarrhea; Denies: abdominal pain : Denies: dysuria Musc: Denies: neck pain or back pain Skin/Breast: Denies: rash Neuro: Denies: headache(s) Psych: Reports: anxiety PFSH ED PFSH: Medical History Chronic back pain No pertinent family history COPD (chronic obstructive pulmonary disease) Surgical History History of facial surgery reconstruction; as a child Family History Sister Cancer uterine Father Cancer prostate Other Chronic kidney disease (CKD) Dementia Diabetes Hyperlipidemia Hypertension Lung disease Psychiatric illness Stroke Denies family history of CAD (coronary artery disease) Clotting disorder Anesthesia complication Bleeding disorder Social History Smoking and tobacco/nicotine status: current every day tobacco/nicotine user cigarettes Packs smoked per day: 1 [ Other cigarette details: 1PPD, 35PY] Alcohol intake: former Year of sobriety/quit date alcohol: 2012 Former alcohol use details: heavy use prior Substance/Drug Use: current Substance/Drug use frequency: daily Other substance/drug use details: Medical card Lives independently: Yes Marital status: Legally Number of children: 0 Current occupational status: employed 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 Special cub[place] needs: No Agree to transfusion: Yes Physical Exam Const: COMMON NORMALS: no acute distress, patient oriented x3 and healthy appearing HENMT: COMMON NORMALS: normocephalic and atraumatic HEAD & SCALP: normocephalic and atraumatic Eye: COMMON NORMALS: conjunctivae normal CONJUNCTIVA: Yes conjunctivae normal Neck/C-Spine: COMMON NORMALS: full ROM and supple Chest: COMMONS NORMALS: normal inspection of the chest Resp: COMMON NORMALS: normal respiratory effort, No retractions, No use of accessory muscles and clear to auscultation bilaterally AUSCULTATION: clear to auscultation bilaterally Cardio: COMMON NORMALS: regular rate, regular rhythm and No murmurs present (Cardio) RATE: regular rate RHYTHM: regular rhythm Extremity: COMMON NORMALS: normal to inspection and full ROM Neuro: COMMON NORMALS: patient oriented x3, moves all extremities and no focal motor deficits Psych: COMMON NORMALS: mental status grossly normal, Normal thought process present and cooperative THOUGHT PROCESS: Normal thought process present Skin: COMMON NORMALS: no rashes or lesions noted and no wounds GENERAL SKIN EXAM: no rashes or lesions noted Course Vital Signs: Vital signs: Vital Signs Temperature 98.1 F 08/21/24 10:28 Pulse Rate 70 08/21/24 10:28 Respiratory Rate 20 H 08/21/24 10:28 Blood Pressure 147/81 08/21/24 10:28 Pulse Oximetry 99 08/21/24 10:28 Oxygen Delivery Me thod Room Air 08/21/24 10:28 MDM - Anxiety Medical Decision Making Patient presents here with nausea on last 2 days also anxiety likely due to missing her meds she feels improved here after Versed with EMS and nausea meds we will prescribe her nausea meds for home abdominal exam is benign no signs of obstruction or acute abdominal emergency she is to follow-up with PCP and return if worsening Medical Records I reviewed the patient's medical records. Lab Data I reviewed the patient's lab results. 08/21/24 10:40 08/21/24 10:40 Laboratory Results WBC 7.08 10^3/uL (3.29-11.43) 08/21/24 10:40 RBC 5.00 10^6/uL (3.85-5.65) 08/21/24 10:40 Hgb 14.70 g/dL (11.27-16.99) 08/21/24 10:40 Hct 44.4 % (36-47) 08/21/24 10:40 MCV 88.8 fl (85-98) 08/21/24 10:40 MCH 29.4 pg (27-33) 08/21/24 10:40 MCHC 33.1 g/dL (30-55) 08/21/24 10:40 RDW 14.3 % (12.1-15.1) 08/21/24 10:40 Plt Count 225 10^3/cmm (157-399) 08/21/24 10:40 MPV 10.1 fL (7.4-10.4) 08/21/24 10:40 Neut % (Auto) 71.0 % 08/21/24 10:40 Lymph % (Auto) 21.8 % 08/21/24 10:40 [place] % (Auto) 6.1 % 08/21/24 10:40 Eos % (Auto) 0.4 % 08/21/24 10:40 Baso % (Auto) 0.4 % 08/21/24 10:40 Neut # (Auto) 5.03 10^3/uL (1.8-7.7) 08/21/24 10:40 Lymph # (Auto) 1.5 10^3/uL (0.8-4.8) 08/21/24 10:40 [place] # (Auto) 0.4 10^3/uL (0.2-0.9) 08/21/24 10:40 Eos # (Auto) 0.0 10^3/uL (0.0-0.8) 08/21/24 10:40 Baso # (Auto) 0.0 10^3/uL (0.0-0.1) 08/21/24 10:40 Nucleated RBC % (auto) 0 % 08/21/24 10:40 Nucleated RBCs # 0.0 /100WBC 08/21/24 10:40 Sodium 138 mmol/L (136-145) 08/21/24 10:40 Potassium 3.7 mmol/L (3.5-5.1) 08/21/24 10:40 Chloride 100 mmol/L (98-107) 08/21/24 10:40 Carbon Dioxide 24 mmol/L (22-29) 08/21/24 10:40 Anion Gap 17.7 (5-19) 08/21/24 10:40 BUN 14 mg/dL (6-20) 08/21/24 10:40 Creatinine 0.9 mg/dL (0.5-0.9) 08/21/24 10:40 GFR Calculation 65.2 mL/min (90-130) L 08/21/24 10:40 Glucose 106 mg/dL (65-115) 08/21/24 10:40 Calculated Osmolality 287 mOsm/kg (285-295) 08/21/24 10:40 Calcium 9.1 mg/dL (8.5-10.5) 08/21/24 10:40 Total Bilirubin 0.8 mg/dL (0.15-1.2) 08/21/24 10:40 AST 28 U/L (0-32) 08/21/24 10:40 ALT 16 U/L (0-33) 08/21/24 10:40 Alkaline Phosphatase 161 U/L (35-105) H 08/21/24 10:40 Total Protein 6.9 g/dL (6.6-8.7) 08/21/24 10:40 Albumin 4.1 g/dL (3.5-5.2) 08/21/24 10:40 Globulin 2.8 g/dL (1.3-4.6) 08/21/24 10:40 Lipase 47 U/L (13-60) 08/21/24 10:40 No radiology studies performed this visit Discharge Plan Discharge Patient Disposition: Home Clinical Impression: Vomiting, Acute anxiety Condition: Stable Prescriptions: New ondansetron 4 mg tablet,disintegrating 4 mg PO Q6H PRN (Reason: nausea and vomiting) Qty: 14 0RF No Action albuterol sulfate 90 mcg/actuation HFA aerosol inhaler 2 puff inhalation Q6H PRN (Reason: shortness of breath or wheezing) Qty: 8.5 0RF atorvastatin 10 mg tablet 10 mg PO DAILY buspirone 15 mg tablet 15 mg PO DAILY pregabalin 100 mg capsule 100 mg PO TID albuterol sulfate 2.5 mg/0.5 mL solution for nebulization 2.5 mg inhalation Q4H PRN (Reason: shortness of breath or wheezing) Qty: 30 0RF escitalopram oxalate 20 mg tablet 20 mg PO DAILY Discharge Orders: Discharge ED (Routine); Ordered 08/21/24 Ordered By: Masoud Cherry Referrals: Marni Lee DO [Primary Care Provider] - 4-7 days Discharge Diet: Advance as tolerated Discharge Activity: Resume usual activity Patient Instructions: Acute Nausea and Vomiting (ED) Coding Level of Care Code ED Field Logistics Coordinator for Jennifer Alvarez
[2024-08-21 10:46] LABS: Basophils % 0.4 %; Eosinophils % 0.4 %; Hematocrit 44.4 % (36-47); Lymphocytes # 1.5 10^3/uL (0.8-4.8); Lymphocytes % 21.8 %; Mean Corpuscular HGB Conc 33.1 g/dL (30-55); Mean Corpuscular Hemoglobin 29.4 pg (27-33); Mean Corpuscular Volume 88.8 fl (85-98); Mean Platelet Volume 10.1 fL (7.4-10.4); Monocytes # 0.4 10^3/uL (0.2-0.9); Monocytes % 6.1 %; Neutrophils # 5.03 10^3/uL (1.8-7.7); Nucleated Red Blood Cells % 0 %; Platelet Count 225 10^3/cmm (157-399); Red Cell Distribution Width 14.3 % (12.1-15.1); White Blood Count 7.08 10^3/uL (3.29-11.43)
[2024-08-21] MEDS: ondansetron 2 mg/ML SDV 2 mL 4 MG IVP (10:47)
[2024-08-21 11:00] LABS: Alanine Aminotransferase 16 U/L (0-33); Albumin Level 4.1 g/dL (3.5-5.2); Alkaline Phosphatase 161 U/L (35-105); Anion Gap 17.7 (5-19); Aspartate Amino Transferase 28 U/L (0-32); Blood Urea Nitrogen 14 mg/dL (6-20); Calcium 9.1 mg/dL (8.5-10.5); Carbon Dioxide 24 mmol/L (22-29); Chloride 100 mmol/L (98-107); Creatinine Clr Calc Pharmacy 75.0128; Globulin 2.8 g/dL (1.3-4.6); Glomerular Filtration Rate 65.2 mL/min (90-130); Glucose 106 mg/dL (65-115); Lipase 47 U/L (13-60); Osmolality Calculated 287 mOsm/kg (285-295); Potassium 3.7 mmol/L (3.5-5.1); Sodium 138 mmol/L (136-145); Total Bilirubin 0.8 mg/dL (0.15-1.2); Total Protein 6.9 g/dL (6.6-8.7)
[2024-08-21] MEDS: LORazepam 1 mg Tablet PO (11:10)
[2024-08-21 11:58] VITALS: BP 138/85; PULSE 74; RESP 14; O2SAT 96
== END 2024-08-21 11:38 | disposition home or self-care (01) ==
PROVIDERS: Emergency Provider Emergency Medicine; PCP Family Medicine
DX: F41.9 Anxiety disorder, unspecified (principal); R11.2 Nausea with vomiting, unspecified; Z91.148 Patient's other noncompliance with medication regimen for other reason
CPT/HCPCS: 80053; 83690; 85025; 96374; 99284; J2405

== ENCOUNTER 2025-02-01 18:31 | Inpatient (IN) | payer OTHER, SELFPAY ==
[2025-02-01 18:33] VITALS: BP 116/81; PULSE 81; RESP 17; TEMP 36.7; O2SAT 96; BMI 28.3
--- NOTE | 2025-02-01 18:46 | ED.C_ITS ---
HPI - Psych 2 General: Chief Complaint: Psychiatric Symptoms Stated Complaint: 96 Time Seen by Provider: 02/01/25 18:33 Source: patient and police Limitations: no limitations History of Present Illness: 54-year-old female with a history of bip olar disorder she is placed under 96- hour hold per police multiple people states she has been acting erratic and making threats to others and placed her on a 96-hour court ordered hold. Patient here is denying all the above. Related Data Home Medications ?Medication ?Instructions ?Recorded ?Confirmed atorvastatin 10 mg tablet 10 mg PO DAILY 07/20/2407/29 buspirone 15 mg tablet 15 mg PO DAILY 07/20/2407/29 pregabalin 100 mg capsule 100 mg PO TID 07/20/2408/21 escitalopram oxalate 20 mg tablet 20 mg PO DAILY 08/2108/21/24 Previous Rx's ?Medication ?Instructions ?Recorded albuterol sulfate 90 mcg/actuation 2 puff inhalation Q 6H PRN 09/07/23 aerosol inhaler shortness of breath or wheez ing #8.5 grams albuterol sulfate 2.5 mg/0.5 mL 2.5 mg (0.5 mL) inhala tion Q4H PRN 07/20/24 solution for nebulization shortness of breath or wheez ing #30 ea ondansetron 4 mg disintegrating 4 mg PO Q6H PRN nausea and 08/21/24 tablet vomiting #14 tabs Allergies Allergy/AdvReac Type Severity Reaction Status Date / Time No Known Allergies Allergy Verified 07/18/24 18:08 Review of Systems 2 Const: Denies: fever(s), chills, body aches or change in appetite ENMT: Denies: throat pain or dental pain Card: Denies: chest pain Resp: Denies: dyspnea GI: Denies: abdominal pain, nausea, vomiting or diarrhea Musc: Denies: neck pain or back pain Skin/Breast: Denies: rash Neuro: Denies: headache(s) PFSH ED 2 PFSH: Medical History Chronic back pain No pertinent family history COPD (chronic obstructive pulmonary disease) Surgical History History of facial surgery reconstruction; as a child Family History Sister Cancer uterine Father Cancer prostate Other Chronic kidney disease (CKD) Dementia Diabetes Hyperlipidemia Hypertension Lung disease Psychiatric illness Stroke Denies family history of CAD (coronary artery disease) Clotting disorder Anesthesia complication Bleeding disorder Social History Smoking and tobacco/nicotine status: current every day tobacco/nicotine user cigarettes Packs smoked per day: 1 [ Other cigarette details: 1PPD, 35PY] Alcohol intake: former Year of sobriety/quit date alcohol: 2012 Former alcohol use details: heavy use prior Substance/Drug Use: current Substance/Drug use frequency: daily Other substance/drug use details: Medical card Lives independently: Yes Marital status: Legally Number of children: 0 Current occupational status: employed 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[place] needs: No Agree to transfusion: Yes Physical Exam 2 Const: COMMON NORMALS: no acute distress, patient oriented x3 and healthy appearing HENMT: COMMON NORMALS: normocephalic and atraumatic HEAD & SCALP: n ormocephalic and atraumatic Eye: COMMON NORMALS: conjunctivae normal CONJUNCTIVA: Yes conjunctivae normal Neck/C-Spine: COMMON NORMALS: full ROM and supple Chest: COMMONS NORMALS: normal inspection of the chest Resp: COMMON NORMALS: normal respiratory effort Cardio: COMMON NORMALS: regular rate, regular rhythm and No murmurs present (Cardio) RATE: regular rate RHYTHM: regular rhythm Extremity: COMMON NORMALS: normal to inspection and full ROM Neuro: COMMON NORMALS: patient oriented x3, moves all extremities and no focal motor deficits Psych: COMMON NORMALS: mental status grossly normal, Normal thought process present and cooperative THOUGHT PROCESS: Normal thought process present Skin: COMMON NORMALS: no rashes or lesions noted and no wounds GENERAL SKIN EXAM: no rashes or lesions noted Course 2 Vital Signs: Vital signs: Vital Signs Temperature 98.1 F 02/01/25 18:33 Pulse Rate 81 02/01/25 18:33 Respiratory Rate 17 02/01/25 18:33 Blood Pressure 116/81 02/01/25 18:33 Pulse Oximetry 96 02/01/25 18:33 Oxygen Delivery Me thod Room Air 02/01/25 18:33 MDM - Psych Medical Decision Making Patient presents here with suicidal ideation under 96-hour hold she is adamant she is not suicidal but is placed on a 96-hour hold with multiple affidavits I spoke to psychiatrist will admit this time Medical Records I reviewed the patient's medical records. Lab Data I reviewed the patient's lab results. 02/01/25 19:00 02/01/25 19:00 Laboratory Results WBC 9.16 10^3/uL (3.29-11.43) 02/01/25 19:00 RBC 4.48 10^6/uL (3.85-5.65) 02/01/25 19:00 Hgb 13.40 g/dL (11.27-16.99) 02/01/25 19:00 Hct 40.8 % (36-47) 02/01/25 19:00 MCV 91.1 fl (85-98) 02/01/25 19:00 MCH 29.9 pg (27-33) 02/01/25 19:00 MCHC 32.8 g/dL (30-55) 02/01/25 19:00 RDW 14.9 % (12.1-15.1) 02/01/25 19:00 Plt Count 221 10^3/cmm (157-399) 02/01/25 19:00 MPV 10.8 fL (7.4-10.4) H 02/01/25 19:00 Neut % (Auto) 59.0 % 02/01/25 19:00 Lymph % (Auto) 30.7 % 02/01/25 19:00 [place] % (Auto) 8.0 % 02/01/25 19:00 Eos % (Auto) 1.3 % 02/01/25 19:00 Baso % (Auto) 0.7 % 02/01/25 19:00 Neut # (Auto) 5.41 10^3/uL (1.8-7.7) 02/01/25 19:00 Lymph # (Auto) 2.8 10^3/uL (0.8-4.8) 02/01/25 19:00 [place] # (Auto) 0.7 10^3/uL (0.2-0.9) 02/01/25 19:00 Eos # (Auto) 0.1 10^3/uL (0.0-0.8) 02/01/25 19:00 Baso # (Auto) 0.1 10^3/uL (0.0-0.1) 02/01/25 19:00 Nucleated RBC % (auto) 0 % 02/01/25 19:00 Nucleated RBCs # 0.0 /100WBC 02/01/25 19:00 Sodium 140 mmol/L (136-145) 02/01/25 19:00 Chloride 105 mmol/L (98-107) 02/01/25 19:00 Carbon Dioxide 22 mmol/L (22-29) 02/01/25 19:00 Anion Gap 16.4 (5-19) 02/01/25 19:00 BUN 7 mg/dL (6-20) 02/01/25 19:00 Creatinine 0.9 mg/dL (0.5-0.9) 02/01/25 19:00 Glucose 110 mg/dL (65-115) 02/01/25 19:00 Calculated Osmolality 289 mOsm/kg (285-295) 02/01/25 19:00 Calcium 9.2 mg/dL (8.5-10.5) 02/01/25 19:00 Total Bilirubin 0.4 mg/dL (0.15-1.2) 02/01/25 19:00 AST 20 U/L (0-32) 02/01/25 19:00 ALT 14 U/L (0-33) 02/01/25 19:00 Total Protein 7.7 g/dL (6.6-8.7) 02/01/25 19:00 Albumin 4.3 g/dL (3.5-5.2) 02/01/25 19:00 Globulin 3.4 g/dL (1.3-4.6) 02/01/25 19:00 No radiology studies performed this visit Discharge Plan Discharge Patient Disposition: Admitted As Inpatient Clinical Impression: Bipolar 1 disorder, Suicidal ideation Condition: Stable Prescriptions: No Action albuterol sulfate 90 mcg/actuation HFA aerosol inhaler 2 puff inhalation Q6H PRN (Reason: shortness of breath or wheezing) Qty: 8.5 0RF atorvastatin 10 mg tablet 10 mg PO DAILY buspirone 15 mg tablet 15 mg PO DAILY pregabalin 100 mg capsule 100 mg PO TID albuterol sulfate 2.5 mg/0.5 mL solution for nebulization 2.5 mg inhalation Q4H PRN (Reason: shortness of breath or wheezing) Qty: 30 0RF escitalopram oxalate 20 mg tablet 20 mg PO DAILY ondansetron 4 mg tablet,disintegrating 4 mg PO Q6H PRN (Reason: nausea and vomiting) Qty: 14 0RF Referrals: Marni Lee DO [Primary Care Provider] - Print Language: Turkmen Coding Level of Care Code ED Drywall Worker for Farag Kim
[2025-02-01 19:08] LABS: Basophils # 0.1 10^3/uL (0.0-0.1); Basophils % 0.7 %; Eosinophils # 0.1 10^3/uL (0.0-0.8); Eosinophils % 1.3 %; Hematocrit 40.8 % (36-47); Lymphocytes # 2.8 10^3/uL (0.8-4.8); Lymphocytes % 30.7 %; Mean Corpuscular HGB Conc 32.8 g/dL (30-55); Mean Corpuscular Hemoglobin 29.9 pg (27-33); Mean Corpuscular Volume 91.1 fl (85-98); Mean Platelet Volume 10.8 fL (7.4-10.4); Monocytes # 0.7 10^3/uL (0.2-0.9); Neutrophils # 5.41 10^3/uL (1.8-7.7); Nucleated Red Blood Cells % 0 %; Platelet Count 221 10^3/cmm (157-399); Red Blood Count 4.48 10^6/uL (3.85-5.65); Red Cell Distribution Width 14.9 % (12.1-15.1); White Blood Count 9.16 10^3/uL (3.29-11.43)
[2025-02-01 19:24] LABS: Alanine Aminotransferase 14 U/L (0-33); Albumin Level 4.3 g/dL (3.5-5.2); Alkaline Phosphatase 155 U/L (35-105); Anion Gap 16.4 (5-19); Aspartate Amino Transferase 20 U/L (0-32); Blood Urea Nitrogen 7 mg/dL (6-20); Calcium 9.2 mg/dL (8.5-10.5); Carbon Dioxide 22 mmol/L (22-29); Chloride 105 mmol/L (98-107); Creatinine Clr Calc Pharmacy 72.5225; Globulin 3.4 g/dL (1.3-4.6); Glucose 110 mg/dL (65-115); Osmolality Calculated 289 mOsm/kg (285-295); Potassium 3.4 mmol/L (3.5-5.1); Sodium 140 mmol/L (136-145); Total Bilirubin 0.4 mg/dL (0.15-1.2); Total Protein 7.7 g/dL (6.6-8.7)
[2025-02-01 19:29] LABS: Acetaminophen < 5.0 ug/mL (10-30); Alcohol Level < 10 mg/dL (0-10); Salicylate < 0.3 mg/dL (3-10)
--- NOTE | 2025-02-01 19:31 | PC.NURSE ---
96 hr rights reviewed with pt @[id number] with assistance of [facility] information security manager Nas. All education reviewed with pt. Pt verbalized understanding to hold process and details to this HS. Patient copy was left @bedside with pt. No further needs at this time.
[2025-02-01 19:40] VITALS: BP 130/68; PULSE 66; O2SAT 96
[2025-02-01 19:53] VITALS: BP 135/85; PULSE 69; RESP 18; TEMP 36.7; O2SAT 97
[2025-02-01 20:16] VITALS: BP 135/85; PULSE 69; RESP 18; TEMP 36.7; O2SAT 97
[2025-02-01] MEDS: CLONazepam 1 mg Tablet PO (22:16)
[2025-02-01] MEDS: lurasidone 20 mg Tablet 40 MG PO (22:16)
[2025-02-01] MEDS: benztropine 1 mg Tablet PO (22:16)
--- NOTE | 2025-02-02 02:16 | PC.ADMIT ---
[email or web address] [facility] Admission Note: The patient,Beata Piedra,54 y/o, was given written information regarding hospital policies, unit procedures and contact persons. Patient's smoking status: current every day smoker. Vital Signs - 8 hr 02/01/25 18:33 02/01/25 19:40 02/01/25 19:53 Temperature 98.1 F 98.1 F Pulse Rate 81 66 69 Respiratory Rate 17 18 Blood Pressure 116/81 130/68 135/85 Pulse Oximetry 96 96 97 Oxygen Delivery Method Room Air Room Air 02/01/25 19:53 02/01/25 20:16 Temperature 98.1 F Pulse Rate 69 Respiratory Rate 18 Blood Pressure 135/85 Pulse Oximetry 97 Oxygen Delivery Method Room Air Room Air Pt. came into ED on a 96 hr hold. Pt. states that she broke up with her girlfriend and shut her phone off. Pt. says this is all lies and it is her girlfriend retaliating because she is mad. Pt. admitted to using Marijuana daily. Pt. is cooperative and calm given the circumstances. Pt. just wants to go home. Pt. did say she sometimes has visual hallucinations. Pt. has a cut on left foot saying she was out in her yard wearing her house slippers and she slipped and caught her food on a piece of wood. Per pt. the wound was looked at in ER. There is a small piece of skin that looks to have sheared off the surrounding area of the wound does not have any redness or warmth noted at this time. Pt. does have some trouble getting her socks on and off herself. Pt. states she has some back problems.
--- NOTE | 2025-02-02 02:21 | PC.NURSE ---
Admission note: Pt. came into ED on a 96 hr hold. Pt. states that she broke up with her girlfriend and shut her phone off. Pt. says this is all lies and it is her girlfriend retaliating because she is mad. Pt. admitted to using Marijuana daily. Pt. is cooperative and calm given the circumstances. Pt. just wants to go home. Pt. did say she sometimes has visual hallucinations. Pt. has a cut on left foot saying she was out in her yard wearing her house slippers and she slipped and caught her food on a piece of wood. Per pt. the wound was looked at in ER. There is a small piece of skin that looks to have sheared off the surrounding area of the wound does not have any redness or warmth noted at this time. Pt. does have some trouble getting her socks on and off herself. Pt. states she has some back problems.
[2025-02-02 06:00] VITALS: BP 110/76; PULSE 61; RESP 16; O2SAT 93
[2025-02-02] MEDS: pregabalin 100 mg Capsule PO ×3 (09:05→21:07)
[2025-02-02] MEDS: lurasidone 20 mg Tablet 40 MG PO (09:05)
[2025-02-02] MEDS: CLONazepam 1 mg Tablet PO ×2 (09:05→15:16)
[2025-02-02] MEDS: escitalopram 10 mg Tablet 20 MG PO (09:05)
[2025-02-02] MEDS: ATORVASTATIN 10 MG TABLET PO (09:09)
[2025-02-02 10:31] LABS: Cocaine Screen Urine Negative (Negative); THC Screen Urine Positive (Negative)
[2025-02-02 10:32] LABS: Amphetamines Screen Urine Negative (Negative); Barbiturates Screen Urine Negative (Negative); Benzodiazepines Screen Urine Negative (Negative); Opiate Screen Urine Positive (Negative); PCP Screen Urine Negative (Negative)
[2025-02-02 14:00] VITALS: BP 137/64; PULSE 82; RESP 18; TEMP 36.6; O2SAT 99
--- NOTE | 2025-02-02 14:55 | W.PM.NPUH&PS ---
Providers/Chief Complaint Admitting Physician: David Vega MD Primary Care Provider: Marni Lee DO Chief Complaint: 96 HPI NPU History of Present Illness Beata Piedra is a 54 year old female who reports a history of multiple inpatient psychiatric hospitalizations who presented on a 96-hour hold after the patient patient had been picked up by police based upon a hold which reports that the patient had threatened to harm the patient's mother and sibling. Patient has a history of bipolar disorder along with borderline personality traits having last been admitted to the neuropsychiatric unit approximately 2 years ago. The patient had stated that her girlfriend of 6 months had filed to have the patient placed in hospital in response to the patient threatening to remove patient from the home along with her 16-year-old and 19-year-old children. Patient had reported that she had had an argument with her Paramore and stated that she wishes to have her now ex-girlfriend removed from the home. She denies any current depressed symptoms. She had reported a past history of mood swings and reported having periods of time where her thoughts were racing and reported having some struggles with falling asleep. She did not endorse any recent antonio. She has stated that her current psychiatrist has put her on medications that if helped with her moods. She denies any psychotic symptoms. She did not endorse any thoughts of hurting herself or others. She reports having problems with chronic worry and reports that she had previously been traumatized but minimized any PTSD symptoms at this time. She does report that she is often easily angered. She denies any history of increased spending. She denied having any thoughts of any family members. 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 The patient denied any feelings of hopelessness or worthlessness. Inpatient psychiatric history: Patient had reported multiple brief psychiatric hospitalizations reporting at least 15 different hospitalizations but states no recent psychiatric hospitalization over the last 2 years. She had reported previous medication trials including Paxil, Cymbalta, Zyprexa, amitriptyline, Effexor,Seroquel, and gabapentin. Outpatient psychiatric history: Patient reports seeing Dr. Cruz in [place] for outpatient treatment that she has been diagnosed with bipolar disorder. Substance abuse history: She reports marijuana use every night. She had denied any history of alcohol or drug-related issues with no history of alcohol or drug treatment. She was positive for opiates on admission. Medical history: Chronic back pain, COPD Surgical history: History of facial surgery reconstruction as a child Allergies: No known drug allergies Medications: Atorvastatin, pregabalin 100 mg 3 times a day, Lexapro 20 mg daily, Latuda 40 mg daily Klonopin 1 mg 3 times a day Legal history: None actively although she reports having been incarcerated a few times in the past. Family psychiatric history: Completed suicide on maternal side of the family, history of addiction issues on both sides of the family Social history: There is no history of any developmental issues with normal milestones reported no presence of special education classes. He had described having a relatively happy childhood. She reported growing up in intact family and had 2 older sisters from the same union. She had reported her father had consumed alcohol and reported a history of emotional abuse but denied any sexual or physical abuse. She had graduated high school attended college and earned her [employer]. She reports that she struggled with her sexual orientation beginning at the age of 9. She reports that she currently is filing for disability and has not been working for a few years due to medical and mental health issues. She currently lives with 2 men that she cares for along with her Paramore and her Paramore's 2 children ages 16 and 19. Meds NPU Home Medications ?Medication ?Instructions ?Recorded ?Confirmed ?Last Taken ?Type albuterol sulfate 90 mcg/actuation 2 puff inhalation Q6H PRN 09/07/23 02/01/25 Unknown Rx aerosol inhaler shortness of breath or wheezing #8.5 grams albuterol sulfate 2.5 mg/0.5 mL 2.5 mg (0.5 mL) inhalation Q4H PRN 07/20/24 02/01/25 Unknown Rx solution for nebulization shortness of breath or wheezing #30 ea atorvastatin 10 mg tablet (Lipitor) 10 mg PO DAILY 07/20/24 02/01/25 08/20/24 History buspirone 15 mg tablet 15 mg PO DAILY 07/20/24 02/01/25 08/20/24 History pregabalin 100 mg capsule (Lyrica) 100 mg PO TID 07/20/24 02/01/2524 History escitalopram oxalate 20 mg tablet 20 mg PO DAILY 08/21/24 02/01/25 08/20/24 History (Lexapro) ondansetron 4 mg disintegrating 4 mg PO Q6H PRN nausea and 08/21/24 02/01/25 Unknown Rx tablet vomiting #14 tabs atorvastatin 10 mg tablet (Lipitor) See Rx Instructions .Route .COMPLEX 02/01/25 02/01/25 Unknown History clonazepam 1 mg tablet (Klonopin) See Rx Instructions .Route .COMPLEX 02/01/25 02/01/25 Unknown History clonazepam 1 mg tablet (Klonopin) See Rx Instructions .Route .COMPLEX 02/01/25 02/01/25 Unknown History clonazepam 1 mg tablet (Klonopin) See Rx Instructions .Route .COMPLEX 02/01/25 02/01/25 Unknown History lurasidone 40 mg tablet (Latuda) See Rx Instructions .Route .COMPLEX 02/01/25 02/01/25 Unknown History Allergies Allergy/AdvReac Type Severity Reaction Status Date / Time No Known Allergies Allergy Verified 07/18/24 18:08 PFSH NPU PFSH: Medical History Chronic back pain No pertinent family history COPD (chronic obstructive pulmonary disease) Surgical History History of facial surgery reconstruction; as a child Family History Sister Cancer uterine Father Cancer prostate Other Chronic kidney disease (CKD) Dementia Diabetes Hyperlipidemia Hypertension Lung disease Psychiatric illness Stroke Denies family history of CAD (coronary artery disease) Clotting disorder Anesthesia complication Bleeding disorder Social History Smoking and tobacco/nicotine status: current every day tobacco/nicotine user cigarettes Packs smoked per day: 1 [ Other cigarette details: 1PPD, 35PY] Alcohol intake: former Year of sobriety/quit date alcohol: 2012 Former alcohol use details: heavy use prior Substance/Drug Use: current Substance/Drug use frequency: daily Other substance/drug use details: Medical card Lives independently: Yes Marital status: Legally Number of children: 0 Current occupational status: employed 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 There was no evidence of any abnormal involuntary motor movements, tics, or tremors appreciated. There was mild psychomotor retardation. She was cooperative with the exam and appeared in no acute distress. Her speech was normal in regards to rate, rhythm, and prosody. Her mood was described as frustrated. Her her affect was slightly restricted in range. Her thought process was linear logical and goal-directed. Her thought content revealed no suicidal or homicidal ideation. She did not appear to be responding to internal stimuli. There was no evidence of delusional thinking. She denied any auditory or visual hallucinations. Her attention span appeared adequate. Rate. Her recent and remote memory appear grossly intact. She was alert and oriented x 3. Her insight is poor. Her judgment is limited. Her impulse control appeared fair. Vitals/I&O/Wt Last Vital Signs Temp 98 F 02/02/25 14:00 Pulse 82 02/02/25 14:00 Resp 18 02/02/25 14:00 BP 137/64 02/02/25 14:00 Pulse Ox 99 02/02/25 14:00 O2 Del Method Room Air 02/01/25 20:16 Weight last 48 hrs Weight 77.111 kg Data NPU 02/01/25 19:00 02/01/25 19:00 A&P Assessment and plan (1) Bipolar disorder, unspecified: (2) Cluster B personality disorder in adult: (3) Suicidal ideation: Plan 54-year-old female with a history of borderline personality traits along with unspecified bipolar disorder admitted on a 96-hour hold due to concerns about the patient's alleged thoughts of harming herself currently denying any problems at this time on interview. #1.? Engage patient in individual, milieu and group therapy. #2?? Recommend sober living treatment at the highest level of care to which the patient is willing to commit. #3??? Restart outpatient medications with reduction in Klonopin to 1mg bid as patient was NEGATIVE on urine drug screen for benzodiazepines and positive for opiates. #4?? TO-15 minute checks? #5?? Will attempt to gather collateral information PDMP PDMP Reviewed: Not Reviewed Involuntary Hold Information Hold Status: Legal Status: 96 Hour Hold Date/Time Hold Expires: 02/05/25@1840 96 Hour Hold: 96 Hour Involuntary Admission: No Attestations NPU Medical Necessity Statement*: Inpatient hospitalization is medically necessary and deemed to ?be ?the clinically appropriate intervention ?at this time.? We will monitor/initiate medications and make changes as indicated.? The patient will be in the hospital for over 2 midnights.? The patient?s likely length of stay 3-4 days. Coding Level of Care Code Acute Code for Chg Fwd Diagnoses Bipolar disorder, unspecified F31.9 Cluster B personality disorder in adult F60.9 Suicidal ideation R45.851
[2025-02-02 20:16] VITALS: BP 99/63; PULSE 67; RESP 18; TEMP 36.8; O2SAT 94
[2025-02-02] MEDS: hyDROXYzine 25 mg Capsule 50 MG PO (21:07)
[2025-02-03 06:00] VITALS: BP 126/72; PULSE 69; RESP 18; TEMP 37.1; O2SAT 93
[2025-02-03] MEDS: pregabalin 100 mg Capsule PO (08:10)
[2025-02-03] MEDS: ATORVASTATIN 10 MG TABLET PO (08:10)
[2025-02-03] MEDS: escitalopram 10 mg Tablet 20 MG PO (08:10)
[2025-02-03] MEDS: CLONazepam 1 mg Tablet PO (08:11)
[2025-02-03 14:00] VITALS: BP 118/74; PULSE 78; RESP 18; TEMP 36.6; O2SAT 99
--- NOTE | 2025-02-03 14:10 | W.PM.NPUDCS ---
Diagnoses at Discharge Discharge Diagnosis (1) Bipolar disorder, unspecified: Status: Acute (2) Cluster B personality disorder in adult: Status: Acute (3) Suicidal ideation: Status: Acute Reason for Visit Reason for Visit: 96 Brief History: History of Present Illness Beata Piedra is a 54 year old female who reports a history of multiple inpatient psychiatric hospitalizations who presented on a 96-hour hold after the patient patient had been picked up by police based upon a hold which reports that the patient had threatened to harm the patient's mother and sibling. Patient has a history of bipolar disorder along with borderline personality traits having last been admitted to the neuropsychiatric unit approximately 2 years ago. The patient had stated that her girlfriend of 6 months had filed to have the patient placed in hospital in response to the patient threatening to remove patient from the home along with her 16-year-old and 19-year-old children. Patient had reported that she had had an argument with her Paramore and stated that she wishes to have her now ex-girlfriend removed from the home. She denies any current depressed symptoms. She had reported a past history of mood swings and reported having periods of time where her thoughts were racing and reported having some struggles with falling asleep. She did not endorse any recent antonio. She has stated that her current psychiatrist has put her on medications that if helped with her moods. She denies any psychotic symptoms. She did not endorse any thoughts of hurting herself or others. She reports having problems with chronic worry and reports that she had previously been traumatized but minimized any PTSD symptoms at this time. She does report that she is often easily angered. She denies any history of increased spending. She denied having any thoughts of any family members. 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 The patient denied any feelings of hopelessness or worthlessness. Inpatient psychiatric history: Patient had reported multiple brief psychiatric hospitalizations reporting at least 15 different hospitalizations but states no recent psychiatric hospitalization over the last 2 years. She had reported previous medication trials including Paxil, Cymbalta, Zyprexa, amitriptyline, Effexor,Seroquel, and gabapentin. Outpatient psychiatric history: Patient reports seeing Dr. Cruz in [place] for outpatient treatment that she has been diagnosed with bipolar disorder. Substance abuse history: She reports marijuana use every night. She had denied any history of alcohol or drug-related issues with no history of alcohol or drug treatment. She was positive for opiates on admission. Medical history: Chronic back pain, COPD Surgical history: History of facial surgery reconstruction as a child Allergies: No known drug allergies Medications: Atorvastatin, pregabalin 100 mg 3 times a day, Lexapro 20 mg daily, Latuda 40 mg daily Klonopin 1 mg 3 times a day Legal history: None actively although she reports having been incarcerated a few times in the past. Family psychiatric history: Completed suicide on maternal side of the family, history of addiction issues on both sides of the family Social history: There is no history of any developmental issues with normal milestones reported no presence of special education classes. He had described having a relatively happy childhood. She reported growing up in intact family and had 2 older sisters from the same union. She had reported her father had consumed alcohol and reported a history of emotional abuse but denied any sexual or physical abuse. She had graduated high school attended college and earned her [employer] M[employer]. She reports that she struggled with her sexual orientation beginning at the age of 9. She reports that she currently is filing for disability and has not been working for a few years due to medical and mental health issues. She currently lives with 2 men that she cares for along with her Paramore and her Paramore's 2 children ages 16 and 19. Hospital Course Hospital Course During the hospitalization, the patient had routine laboratory studies which were within normal limits except for a few outliers.? Additionally, there was a general medical evaluation which was also within normal limits and revealed no new acute processes.? At the time of discharge, lethality was denied and psychosis was absent. ? Mood and anxiety were well managed.? The patient endorsed a plan to avoid all drugs of abuse and follow up with the aftercare recommendations of the treatment team.? The patient was evaluated and deemed to be absent credible lethality and had achieved the maximum benefit from an inpatient hospitalization, and so was discharged. Patient was restarted back on medications as prescribed on outpatient basis with no concerns noted. She did test positive for opiates and THC and was negative for benzodiazepine on admission despite her reporting routine use of klonopin. ? Involuntary Hold Information Hold Status: Legal Status: 96 Hour Hold Date/Time Hold Expires: 02/05/25@1840 96 Hour Hold: 96 Hour Involuntary Admission: No Mental Status Exam MSE Comments: Patient is casually dressed white female who appeared well-nourished with fair eye contact and normal gait. There was no evidence of any abnormal involuntary motor movements, tics, or tremors appreciated. There was mild psychomotor retardation. She was cooperative with the exam and appeared in no acute distress. Her speech was normal in regards to rate, rhythm, and prosody. Her mood was described as fine. Her her affect was euthymic. Her thought process was linear, logical and goal-directed. Her thought content revealed no suicidal or homicidal ideation. She did not appear to be responding to internal stimuli. There was no evidence of delusional thinking. She denied any auditory or visual hallucinations. Her attention span appeared adequate. Her recent and remote memory appear grossly intact. She was alert and oriented x 3. Her insight is poor. Her judgment is fair. Her impulse control appeared fair. Discharge Data Studies Completed and Pending: Laboratory Results WBC 9.16 10^3/uL (3.2 9-11.43) 02/01/25 19:00 RBC 4.48 10^6/uL (3.8 5-5.65) 02/01/25 19:00 Hgb 13.40 g/dL (11.27 -16.99) 02/01/25 19:00 Hct 40.8 % (36-47) 02/01/25 19:00 MCV 91.1 fl (85-98) 02/01/25 19:00 MCH 29.9 pg (27-33) 02/01/25 19:00 MCHC 32.8 g/dL (30-55) 02/01/25 19:00 RDW 14.9 % (12.1-15.1 ) 02/01/25 19:00 Plt Count 221 10^3/cmm (157 -399) 02/01/25 19:00 MPV 10.8 fL (7.4-10.4 ) H 02/01/25 19:00 Neut % (Auto) 59.0 % 02/01/25 19:00 Lymph % (Auto) 30.7 % 02/01/25 19:00 Josephine % (Auto) 8.0 % 02/01/25 19:00 Eos % (Auto) 1.3 % 02/01/25 19:00 Baso % (Auto) 0.7 % 02/01/25 19:00 Neut # (Auto) 5.41 10^3/uL (1.8 -7.7) 02/01/25 19:00 Lymph # (Auto) 2.8 10^3/uL (0.8- 4.8) 02/01/25 19:00 Josephine # (Auto) 0.7 10^3/uL (0.2- 0.9) 02/01/25 19:00 Eos # (Auto) 0.1 10^3/uL (0.0- 0.8) 02/01/25 19:00 Baso # (Auto) 0.1 10^3/uL (0.0- 0.1) 02/01/25 19:00 Nucleated RBC % (a uto) 0 % 02/01/25 19:00 Nucleated RBCs # 0.0 /100WBC 02/01/25 19:00 Sodium 140 mmol/L (136-1 45) 02/01/25 19:00 Potassium 3.4 mmol/L (3.5-5 .1) L 02/01/25 19:00 Chloride 105 mmol/L (98-10 7) 02/01/25 19:00 Carbon Dioxide 22 mmol/L (22-29) 02/01/25 19:00 Anion Gap 16.4 (5-19) 02/01/25 19:00 BUN 7 mg/dL (6-20) 02/01/25 19:00 Creatinine 0.9 mg/dL (0.5-0. 9) 02/01/25 19:00 GFR Calculation 65.0 mL/min (90-1 30) L 02/01/25 19:00 Glucose 110 mg/dL (65-115 ) 02/01/25 19:00 Calculated Osmolal ity 289 mOsm/kg (285- 295) 02/01/25 19:00 Calcium 9.2 mg/dL (8.5-10 .5) 02/01/25 19:00 Total Bilirubin 0.4 mg/dL (0.15-1 .2) 02/01/25 19:00 AST 20 U/L (0-32) 02/01/25 19:00 ALT 14 U/L (0-33) 02/01/25 19:00 Alkaline Phosphata se 155 U/L (35-105) H 02/01/25 19:00 Total Protein 7.7 g/dL (6.6-8.7 ) 02/01/25 19:00 Albumin 4.3 g/dL (3.5-5.2 ) 02/01/25 19:00 Globulin 3.4 g/dL (1.3-4.6 ) 02/01/25 19:00 Salicylates < 0.3 mg/dL (3-10 ) L 02/01/25 19:00 Urine Opiates Scre en Positive ng/mL (N egative) H 02/01/25 09:20 Acetaminophen < 5.0 ug/mL (10-3 0) L 02/01/25 19:00 Ur Barbiturates Sc reen Negative ng/mL (N egative) 02/01/25 09:20 Ur Phencyclidine S crn Negative ng/mL (N egative) 02/01/25 09:20 Ur Amphetamines Sc reen Negative ng/mL (N egative) 02/01/25 09:20 U Benzodiazepines Scrn Negative ng/mL (N egative) 02/01/25 09:20 Urine Cocaine Scre en Negative ng/mL (N egative) 02/01/25 09:20 U Marijuana (THC) Screen Positive ng/mL (N egative) H 02/01/25 09:20 Ethyl Alcohol < 10 mg/dL (0-10) 02/01/25 19:00 Vitals: Last Vital Signs Temp 98.7 F 02/03/25 06:00 Pulse 69 02/03/25 06:00 Resp 18 02/03/25 06:00 BP 126/72 02/03/25 06:00 Pulse Ox 93 02/03/25 06:00 O2 Del Method Room Air 02/03/25 06:00 Discharge Plan Discharge Patient Disposition: Home Condition: Stable Prescriptions: Continued albuterol sulfate 90 mcg/actuation HFA aerosol inhaler 2 puff inhalation Q6H PRN (Reason: shortness of breath or wheezing) Qty: 8.5 0RF atorvastatin [Lipitor] 10 mg tablet 10 mg PO DAILY buspirone 15 mg tablet 15 mg PO DAILY pregabalin [Lyrica] 100 mg capsule 100 mg PO TID albuterol sulfate 2.5 mg/0.5 mL solution for nebulization 2.5 mg inhalation Q4H PRN (Reason: shortness of breath or wheezing) Qty: 30 0RF escitalopram oxalate [Lexapro] 20 mg tablet 20 mg PO DAILY ondansetron 4 mg tablet,disintegrating 4 mg PO Q6H PRN (Reason: nausea and vomiting) Qty: 14 0RF clonazepam [Klonopin] 1 mg tablet See Rx Instructions .ROUTE .COMPLEX Rx Instructions: 1mg TID atorvastatin [Lipitor] 10 mg tablet See Rx Instructions .ROUTE .COMPLEX Rx Instructions: take 1 tab at HS lurasidone [Latuda] 40 mg tablet See Rx Instructions .ROUTE .COMPLEX Rx Instructions: take one tab QD Discontinued clonazepam [Klonopin] 1 mg tablet See Rx Instructions .ROUTE .COMPLEX Rx Instructions: take 1mg TID clonazepam [Klonopin] 1 mg tablet See Rx Instructions .ROUTE .COMPLEX Rx Instructions: take 1mg PO TID Discharge Orders: Discharge Order (Routine); Ordered 02/03/25 Ordered By: David Vega Referrals: [facility] [Outside] - 02/09/25 7:30 am (Scheduled for initial appointmentwith Reva Hurtado on 02/09/25 @7:30 am. ) Marni Lee DO [Primary Care Provider] - Discharge Diet: Usual diet Discharge Activity: Resume usual activity Patient Instructions: Opioid Safety Discharge Attestations NPU Time Spent in Discharge Care*: less than 30 min Specific Discharge Activities: Specific discharge activities: educating patient and documenting/other paperwork Coding Level of Care Code Acute Code for g Fwd Diagnoses Bipolar disorder, unspecified F31.9 Cluster B personality disorder in adult F60.9 Suicidal ideation R45.850
[2025-02-03 14:23] VITALS: BP 126/72; PULSE 18; RESP 69; TEMP 37.1; O2SAT 93
== END 2025-02-03 15:33 | disposition home or self-care (01) | DRG 885 ==
LOC: ER 19:30 → NP 19:33
PROVIDERS: Admitting Provider Psychiatry & Neurology Psychiatry; Emergency Provider Emergency Medicine; PCP Family Medicine; Visit Provider Psychiatry & Neurology Psychiatry
DX: F31.9 Bipolar disorder, unspecified (principal); R45.851 Suicidal ideations; F60.9 Personality disorder, unspecified; F17.210 Nicotine dependence, cigarettes, uncomplicated; J44.9 Chronic obstructive pulmonary disease, unspecified
CPT/HCPCS: 80053; 80306; 80307; 85025; 97150; 97165; 99285; J9999

== ENCOUNTER 2025-02-11 08:16 | Emergency (ER) | payer MEDICAID, SELFPAY ==
--- NOTE | 2025-02-11 08:24 | XR_ITS ---
WS: [id number] Chest, AP portable upright, with left rib detail, 02/11/2025 Clinical Data: Pain Comparison: Portable chest, 07/20/2024 Findings: The lungs show no nodules, masses, or effusions. The heart is normal. No pneumonia or pneumothorax is seen. Monitor leads are on the chest wall. The ribs are intact. No rib fractures seen. No subcutaneous emphysema is present. XR/XR ribs LT mn 3V w [id number] Impression: Negative chest with left rib detail.
--- NOTE | 2025-02-11 08:30 | ECG_ITS ---
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 Measurements Intervals [place] Rate: 61 P: 49 SD: 145 QRS: 75 QRSD: 90 T: 68 QT: 414 QTc: 419 Interpretive Statements SINUS RHYTHM Compared to ECG 07/20/2024 12:54:15 T-wave abnormality no longer present Electronically Signed On 02-12-2025 08:45:52 CDT by Usama Rodriguez M.D. [email or web address]
[2025-02-11 08:32] VITALS: BP 148/83; PULSE 67; RESP 16; TEMP 36.6; O2SAT 99; BMI 28.4
[2025-02-11 09:17] LABS: Basophils # 0.1 10^3/uL (0.0-0.1); Basophils % 1.1 %; Eosinophils # 0.2 10^3/uL (0.0-0.8); Eosinophils % 2.6 %; Hematocrit 40.9 % (36-47); Lymphocytes # 1.6 10^3/uL (0.8-4.8); Lymphocytes % 24.5 %; Mean Corpuscular Hemoglobin 29.5 pg (27-33); Mean Corpuscular Volume 92.1 fl (85-98); Mean Platelet Volume 11.9 fL (7.4-10.4); Monocytes # 0.5 10^3/uL (0.2-0.9); Monocytes % 7.4 %; Neutrophils # 4.13 10^3/uL (1.8-7.7); Neutrophils % 64.1 %; Nucleated Red Blood Cells % 0 %; Platelet Count 190 10^3/cmm (157-399); Red Blood Count 4.44 10^6/uL (3.85-5.65); Red Cell Distribution Width 14.6 % (12.1-15.1); White Blood Count 6.45 10^3/uL (3.29-11.43)
[2025-02-11 09:33] LABS: Alanine Aminotransferase 12 U/L (0-33); Albumin Level 3.7 g/dL (3.5-5.2); Alkaline Phosphatase 145 U/L (35-105); Aspartate Amino Transferase 16 U/L (0-32); Blood Urea Nitrogen 9 mg/dL (6-20); Calcium 8.8 mg/dL (8.5-10.5); Carbon Dioxide 25 mmol/L (22-29); Chloride 109 mmol/L (98-107); Creatinine Clr Calc Pharmacy 72.7245; Glucose 93 mg/dL (65-115); Osmolality Calculated 296 mOsm/kg (285-295); Sodium 144 mmol/L (136-145); Total Bilirubin 0.3 mg/dL (0.15-1.2); Total Protein 6.7 g/dL (6.6-8.7)
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
[2025-02-11] MEDS: ketorolac 60 mg/2 mL INJ IM (10:19)
[2025-02-11] MEDS: dexamethasone 10 mg/mL INJ IM (10:19)
[2025-02-11] MEDS: morphine 4 mg/mL SDV 1 mL IVP (10:19)
[2025-02-11 10:51] VITALS: BP 144/105; PULSE 53; O2SAT 99
== END 2025-02-11 10:51 | disposition home or self-care (01) ==
PROVIDERS: Emergency Provider Family Medicine; PCP Family Medicine
DX: R07.81 Pleurodynia (principal); F17.210 Nicotine dependence, cigarettes, uncomplicated; J44.9 Chronic obstructive pulmonary disease, unspecified
CPT/HCPCS: 36415; 71101; 80053; 85025; 93005; 96372; 96374; 99285; J1100; J1885; J2270

== ENCOUNTER 2025-02-26 22:27 | Emergency (ER) | payer MEDICAID, SELFPAY ==
[2025-02-26 22:31] VITALS: BP 132/77; PULSE 92; RESP 18; TEMP 36.5; O2SAT 97; BMI 28.4
[2025-02-26 22:55] LABS: Add Urine Microscopic? NO
[2025-02-26 22:59] LABS: Bilirubin Urine Neg (Negative); Blood Urine Neg (Negative); Glucose Urine UA Norm (Normal); Ketones Urine Negative (Negative); Leukocyte Esterase Urine 2+ (Negative); Nitrate Urine Negative (Negative); Protein Urine Neg (Negative); Specific Gravity, Urine 1.005 (1.005-1.030); Urine Appearance Cloudy (CLEAR); Urine Color Yellow (Yellow); Urobilinogen Urine Neg (Negative); pH Urine 6 (5-7)
[2025-02-26 23:00] LABS: Charge for UA Resulting for Rev
[2025-02-26 23:02] LABS: HCG Qualitative Urine. Negative (Negative)
[2025-02-26 23:03] LABS: Bacteria Urine None Seen /hpf; Hyaline Casts Urine 2.87 /lpf; RBC Urine 0-2 /hpf (0-2); Squamous Epithelial Cell Urine 0-5 /hpf (0-5); WBC Urine 21-50 /hpf (0-5)
[2025-02-26 23:07] LABS: Amphetamines Screen Urine Negative (Negative); Barbiturates Screen Urine Negative (Negative); Benzodiazepines Screen Urine Negative (Negative); Cocaine Screen Urine Negative (Negative); Opiate Screen Urine Negative (Negative); PCP Screen Urine Negative (Negative); THC Screen Urine Positive (Negative)
[2025-02-26 23:14] LABS: Add Urine Culture? Yes
[2025-02-26 23:15] LABS: Basophils # 0.1 10^3/uL (0.0-0.1); Basophils % 0.7 %; Eosinophils # 0.2 10^3/uL (0.0-0.8); Eosinophils % 2.5 %; Hematocrit 41.1 % (36-47); Lymphocytes % 34.3 %; Mean Corpuscular HGB Conc 31.6 g/dL (30-55); Mean Corpuscular Hemoglobin 30.2 pg (27-33); Mean Corpuscular Volume 95.4 fl (85-98); Mean Platelet Volume 11.4 fL (7.4-10.4); Monocytes # 0.7 10^3/uL (0.2-0.9); Neutrophils # 4.73 10^3/uL (1.8-7.7); Neutrophils % 54.3 %; Nucleated Red Blood Cells % 0 %; Platelet Count 212 10^3/cmm (157-399); Red Blood Count 4.31 10^6/uL (3.85-5.65); Red Cell Distribution Width 14.7 % (12.1-15.1); White Blood Count 8.72 10^3/uL (3.29-11.43)
[2025-02-26 23:22] LABS: Alanine Aminotransferase 14 U/L (0-33); Alkaline Phosphatase 158 U/L (35-105); Anion Gap 14.4 (5-19); Aspartate Amino Transferase 18 U/L (0-32); Blood Urea Nitrogen 13 mg/dL (6-20); Calcium 8.9 mg/dL (8.5-10.5); Carbon Dioxide 25 mmol/L (22-29); Chloride 104 mmol/L (98-107); Creatinine Clr Calc Pharmacy 65.4521; Globulin 3.1 g/dL (1.3-4.6); Glomerular Filtration Rate 57.6 mL/min (90-130); Glucose 102 mg/dL (65-115); Osmolality Calculated 290 mOsm/kg (285-295); Potassium 3.4 mmol/L (3.5-5.1); Sodium 140 mmol/L (136-145); Total Bilirubin 0.3 mg/dL (0.15-1.2); Total Protein 7.1 g/dL (6.6-8.7)
[2025-02-26 23:23] LABS: Acetaminophen < 5.0 ug/mL (10-30); Salicylate < 0.3 mg/dL (3-10)
--- NOTE | 2025-02-26 23:26 | ED.C_ITS ---
HPI - Psych 2 General: Chief Complaint: Psychiatric Symptoms Stated Complaint: SI Time Seen by Provider: 02/26/25 22:49 Source: patient Mode of arrival: EMS Limitations: no limitations History of Present Illness: 54yo female with a history of bipolar 1 disorder and cluster B personality disorder presents via EMS for auditory and visual hallucinations. Patient states that she has not been able to fill her Latuda and Lyrica due to monetary concerns. She states that she has been seeing shadow people that sometimes do not have faces and various small animals that are not really there. Patient states that she has also been hearing voices that do not always make sense. States that she cannot always understand what they are saying to her. Reports that she has been having hallucinations since her mother in 2021. Reports that she takes care of of 2 kids and their checks did not come in, so they are having monetary issues as well. States tonight she did ask her father for help, but he is unable to help her. States she wants to make it stop. Patient does report that she took approximately 16 of her prescribed Klonopin tonight to help with her symptoms, but she could not find improvement. Patient is requesting help with her hallucinations. Associated symptoms: Reports auditory hallucinations, visual hallucinations and depression Related Data Home Medications ?Medication ?Instructions ?Recorded ?Confirmed atorvastatin 10 mg tablet (Lipitor) 10 mg PO DAILY 02/11/25 escitalopram oxalate 20 mg tablet 20 mg PO DAILY 08/2102/11/25 (Lexapro) clonazepam 1 mg tablet (Klonopin) 1 mg PO TID 02/01/25 02/11/25 lurasidone 40 mg tablet (Latuda) 40 mg PO DAILY 02/11/25 benztropine 0.5 mg tablet 0.5 mg PO BEDTIME 02/11/25 0 02/11/25 pregabalin 150 mg capsule 150 mg PO Q8H 02/11/2502/11 Previous Rx's ?Medication ?Instructions ?Recorded albuterol sulfate 90 mcg/actuation 2 puff inhalation Q 6H PRN 09/07/23 aerosol inhaler shortness of breath or wheez ing #8.5 grams albuterol sulfate 2.5 mg/0.5 mL 2.5 mg (0.5 mL) inhala tion Q4H PRN 07/20/24 solution for nebulization shortness of breath or wheez ing #30 ea diclofenac sodium 75 mg 75 mg PO Q12H PRN pain #20 t abs 02/11/25 tablet,delayed release tizanidine 4 mg tablet 4 mg PO Q6H PRN muscle spast icity 02/11/25 #20 tabs Allergies Allergy/AdvReac Type Severity Reaction Status Date / Time No Known Allergies Allergy Verified 02/11/25 08:45 Review of Systems 2 Const: Denies: fever(s) or chills Card: Denies: chest pain Resp: Denies: dyspnea GI: Denies: abdominal pain Psych: Reports: depression, visual hallucinations and auditory hallucinations PFSH ED 2 PFSH: Medical History Chronic back pain No pertinent family history COPD (chronic obstructive pulmonary disease) Surgical History History of facial surgery reconstruction; as a child Family History Sister Cancer uterine Father Cancer prostate Other Chronic kidney disease (CKD) Dementia Diabetes Hyperlipidemia Hypertension Lung disease Psychiatric illness Stroke Denies family history of CAD (coronary artery disease) Clotting disorder Anesthesia complication Bleeding disorder Social History Smoking and tobacco/nicotine status: current every day tobacco/nicotine user cigarettes Packs smoked per day: 1 [ Other cigarette details: 1PPD, 35PY] Alcohol intake: former Year of sobriety/quit date alcohol: 2012 Former alcohol use details: heavy use prior Substance/Drug Use: current Substance/Drug use frequency: daily Other substance/drug use details: Medical card Lives independently: Yes Marital status: Legally Number of children: 0 Current occupational status: employed 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 She is able to give history with no difficulty. She is interactive with exam. No family is present HENMT: COMMON NORMALS: normocephalic HEAD & SCALP: normocephalic Chest: CHEST: Yes Symmetrical chest wall rise Resp: COMMON NORMALS: normal respiratory effort EFFORT & INSPECTION: Yes able to speak in complete sentences Extremity: COMMON NORMALS: full ROM NARRATIVE EXTREMITY EXAM: ARELI Neuro: COMMON NORMALS: moves all extremities SENSORIUM/ORIENTATION: Yes alert Psych: COMMON NORMALS: cooperative ACTIVITY/MOTOR BEHAVIOR: Yes appropriate eye contact MOOD & AFFECT: Yes depressed mood THOUGHT CONTENT: Yes Hallucination(s) present auditory and visual Course 2 ED course: 14: Discussed case with Dr. Brian serrano or admission to the NPU unit. Agrees with admission, but no beds available at this time and likely no beds available until Saturday. Patient will likely need transfer. Vital Signs: Vital signs: Vital Signs Temperature 97.7 F 02/26/25 22:31 Pulse Rate 92 02/26/25 22:31 Respiratory Rate 18 02/26/25 22:31 Blood Pressure 132/77 02/26/25 22:31 Pulse Oximetry 97 02/26/25 22:31 Oxygen Delivery Me thod Room Air 02/26/25 22:31 MDM - Psych Medical Decision Making 54yo female with a history of bipolar 1 disorder and cluster B personality disorder presents via EMS for auditory and visual hallucinations. Patient states that she has not been able to fill her Latuda and Lyrica due to monetary concerns. She states that she has been seeing shadow people that sometimes do not have faces and various small animals that are not really there. Patient states that she has also been hearing voices that do not always make sense. States that she cannot always understand what they are saying to her. Reports that she has been having hallucinations since her mother in 2021. Reports that she takes care of of 2 kids and their checks did not come in, so they are having monetary issues as well. States tonight she did ask her father for help, but he is unable to help her. States she wants to make it stop. Patient does report that she took approximately 16 of her prescribed Klonopin tonight to help with her symptoms, but she could not find improvement. Patient is requesting help with her hallucinations. Patient is nontoxic in appearance. Vital signs are stable. Chart review reveals patient was admitted at this facility on 02/11/2025 as well as on 01/18/2023. No leukocytosis, white blood cell count noted to be 8.72. Hemoglobin is 13, no anemia. Potassium is very mildly decreased at 3.4. Creatinine is mildly elevated at 1.0. UA with 2+ leukocyte Estrace, 21-50 white blood cells, no bacteria seen. Salicylates and acetaminophen unremarkable. UDS is positive for THC. Patient is medically cleared. No inpatient beds available in this facility for the next few days. Will proceed with transfer. Differential Diagnosis Likely acute psychosis, chronic schizophrenia, suicidal ideation, bipolar disorder and depression Medical Records I reviewed the patient's medical records. Lab Data I reviewed the patient's lab results. 02/26/25 23:01 02/26/25 23: Laboratory Results WBC 8.72 10^3/uL (3.29-11.43) 02/26/25 23: RBC 4.31 10^6/uL (3.85-5.65) 02/26/25 23: Hgb 13.00 g/dL (11.27-16.99) 02/26/25 23: Hct 41.1 % (36-47) 02/26/25 23: MCV 95.4 fl (85-98) 02/26/25 23: MCH 30.2 pg (27-33) 02/26/25 23: MCHC 31.6 g/dL (30-55) 02/26/25 23: RDW 14.7 % (12.1-15.1) 02/26/25 23: Plt Count 212 10^3/cmm (157-399) 02/26/25 23: MPV 11.4 fL (7.4-10.4) H 02/26/25 23: Neut % (Auto) 54.3 % 02/26/25 23: Lymph % (Auto) 34.3 % 02/26/25 23: Parker % (Auto) 8.0 % 02/26/25 23: Eos % (Auto) 2.5 % 02/26/25 23: Baso % (Auto) 0.7 % 02/26/25 23: Neut # (Auto) 4.73 10^3/uL (1.8-7.7) 02/26/25 23: Lymph # (Auto) 3.0 10^3/uL (0.8-4.8) 05/02/25 23:01 Parker # (Auto) 0.7 10^3/uL (0.2-0.9) 02/26/25 23:01 Eos # (Auto) 0.2 10^3/uL (0.0-0.8) 02/26/25 23:01 Baso # (Auto) 0.1 10^3/uL (0.0-0.1) 02/26/25 23:01 Nucleated RBC % (auto) 0 % 02/26/25 23: Nucleated RBCs # 0.0 /100WBC 02/26/25 23:01 Sodium 140 mmol/L (136-145) 02/26/25 23: Potassium 3.4 mmol/L (3.5-5.1) L 02/26/25 23: Chloride 104 mmol/L (98-107) 02/26/25 23: Carbon Dioxide 25 mmol/L (22-29) 02/26/25 23: Anion Gap 14.4 (5-19) 02/26/25 23: BUN 13 mg/dL (6-20) 02/26/25 23:01 Creatinine 1.0 mg/dL (0.5-0.9) H 02/26/25 23:01 GFR Calculation 57.6 mL/min (90-130) L 02/26/25 23: Glucose 102 mg/dL (65-115) 02/26/25 23: Calculated Osmolality 290 mOsm/kg (285-295) 02/26/25 23: Calcium 8.9 mg/dL (8.5-10.5) 02/26/25 23: Total Bilirubin 0.3 mg/dL (0.15-1.2) 02/26/25 23:01 AST 18 U/L (0-32) 02/26/25 23: ALT 14 U/L (0-33) 02/26/25 23: Alkaline Phosphatase 158 U/L (35-105) H 02/26/25 23:01 Total Protein 7.1 g/dL (6.6-8.7) 02/26/25 23: Albumin 4.0 g/dL (3.5-5.2) 02/26/25 23: Globulin 3.1 g/dL (1.3-4.6) 02/26/25 23:01 HCG, Qual Negative (Negative) 02/26/25 22:48 Urine Color Yellow (Yellow) 02/26/25 22:48 Urine Appearance Cloudy (CLEAR) A 02/26/25 22:48 Urine pH 6 (5-7) 02/26/25 22:48 Ur Specific [place] 1.005 (1.005-1.030) 02/26/25 22:48 Urine Protein Neg (Negative) 02/26/25 22:48 Urine Glucose (UA) Norm (Normal) 02/26/25 22:48 Urine Ketones Negative (Negative) 02/26/25 22:48 Urine Blood Neg (Negative) 02/26/25 22:48 Urine Nitrate Negative (Negative) 02/26/25 22:48 Urine Bilirubin Neg (Negative) 02/26/25 22:48 Urine Urobilinogen Neg mg/dL (Negative) 02/26/25 22:48 Ur Leukocyte Esterase 2+ (Negative) H 02/26/25 22:48 Urine RBC 0-2 /hpf (0-2) 02/26/25 22:48 Urine WBC 21-50 /hpf (0-5) H 02/26/25 22:48 Ur Squamous Epith Cells 0-5 /hpf (0-5) 02/26/25 22:48 Amorphous Sediment Not Reportable 02/26/25 22:48 Urine Bacteria None seen /hpf (NONE) 02/26/25 22:48 Hyaline Casts 2.87 /lpf 02/26/25 22:48 Salicylates < 0.3 mg/dL (3-10) L 02/26/25 23:01 Urine Opiates Screen Negative ng/mL (Negative) 02/26/25 22:48 Acetaminophen < 5.0 ug/mL (10-30) L 02/26/25 23:01 Ur Barbiturates Screen Negative ng/mL (Negative) 02/26/25 22:48 Ur Phencyclidine Scrn Negative ng/mL (Negative) 02/26/25 22:48 Ur Amphetamines Screen Negative ng/mL (Negative) 02/26/25 22:48 U Benzodiazepines Scrn Negative ng/mL (Negative) 02/26/25 22:48 Urine Cocaine Screen Negative ng/mL (Negative) 02/26/25 22:48 U Marijuana (THC) Screen Positive ng/mL (Negative) H 02/26/25 22:48 All radiology interpretation(s) finalized by discharge Discharge Plan Discharge Patient Disposition: Xfer Psychiatric Hosp Clinical Impression: Bipolar 1 disorder, Cluster B personality disorder in adult, Auditory hallucination, Hallucinations, visual, Noncompliance with medications Condition: Stable Referrals: Marni Lee DO [Primary Care Provider, [facility]] Print Language: German Coding Level of Care Code ED Midwife Practitioner for Jennifer Alvarez
--- NOTE | 2025-02-27 00:29 | XRR_ITS ---
PROCEDURE INFORMATION: Exam: XR Chest Exam date and time: 02/27/2025 12:37 AM Age: 54 years old Clinical indication: Shortness of breath; Additional info: Medical clearance TECHNIQUE: Imaging protocol: Radiologic exam of the chest. Views: 1 view. COMPARISON: CR XR ribs LT mn 3V w CXR1V [id number] 02/11/2025 9:24 AM FINDINGS: Lungs: Mild hazy opacification along the left lower lobe may represent atelectasis, developing infectious process, or secondary to overlying breast tissue. Pleural spaces: Unremarkable. No pleural effusion. No pneumothorax. Heart/Mediastinum: Unremarkable. No cardiomegaly. Vasculature: Aortic calcifications. Bones/joints: Unremarkable. XR/XR chest 1V portable [id number] IMPRESSION: Mild hazy opacification along the left lower lobe may represent atelectasis, developing infectious process, or secondary to overlying breast tissue.
[2025-02-27 01:41] LABS: Influenza A NEGATIVE (Negative); Influenza B NEGATIVE (Negative); Respiratory Syncytial Virus Ce NEGATIVE (Negative); SARS-CoV-2 PCR NEGATIVE (Negative)
--- NOTE | 2025-02-27 02:11 | ECG_ITS ---
[facility] [place] [place] [facility] Date: 2025-02-27 Pat Name: Beata Piedra Department: Room: Gender: Female Green Hide Inspector: : 1970 Requested By: Jae Neff Order Number: [id number] Minesh MD: Clint Brink M.D. Measurements Intervals [place] Rate: 70 P: 56 CA: 189 QRS: 72 QRSD: 93 T: 56 QT: 427 QTc: 462 Interpretive Statements SINUS RHYTHM Compared to ECG 02/11/2025 08:30:48 No significant changes Electronically Signed On 03-01-2025 09:21:38 CDT by Clint Brink M.D. [email or web address]
[2025-02-27 05:27] VITALS: BP 100/76; PULSE 80; RESP 16; O2SAT 95
--- NOTE | 2025-02-27 05:58 | PC.NURSE ---
Addendum entered by Phyllis Mitchell RN 02/27/25 06:17: fall risk band applied to pt Original Note: psa notified rn that pt fell out of bed. upon arrival to room pt is laying in floor. pt requested assistance out of the floor. pt denied pain, injury. pt assisted to her feet and walked around room, remade bed, and laid back in bed. MD notified. no further orders at this time. rails up on bed.
[2025-02-27 07:30] VITALS: BP 90/56; PULSE 69; O2SAT 91
[2025-02-27 08:19] VITALS: BP 113/73; PULSE 85; O2SAT 96
== END 2025-02-27 08:20 ==
PROVIDERS: Emergency Provider Nurse Practitioner; PCP Family Medicine
DX: F31.9 Bipolar disorder, unspecified (principal); F60.89 Other specific personality disorders; R44.0 Auditory hallucinations; R44.1 Visual hallucinations; Z91.148 Patient's other noncompliance with medication regimen for other reason; F17.210 Nicotine dependence, cigarettes, uncomplicated; J44.9 Chronic obstructive pulmonary disease, unspecified
CPT/HCPCS: 36415; 71045; 80053; 80306; 80307; 81003; 81025; 85025; 87086; 87637; 93005; 99285

== ENCOUNTER → 2025-03-29 13:45 | Outpatient (BNVA) | payer OTHER, SELFPAY | PROVIDERS: PCP Family Medicine; Visit Provider Nurse Practitioner | DX: F31.5 Bipolar disorder, current episode depressed, severe, with psychotic features (principal); Z79.899 Other long term (current) drug therapy | CPT/HCPCS: 80061; 83036 ==